=== PATIENT | male | born 1965 | race Caucasian/White ===

== ENCOUNTER 2017-05-10 23:10 | Emergency (ER) | payer BC, MEDICAID, OTHER ==
[2017-05-10 23:53] LABS: CHLORIDE,CL 107 mmol/L (98-110); SODIUM,NA 140 mmol/L (136-146)
--- NOTE | 2017-05-10 23:56 | EDM.PDOC ---
ED HPI GENERAL MEDICAL PROBLEM - General Chief Complaint: Neuro Symptoms/Deficits Stated Complaint: left sided weakness Time Seen by Provider: 05/10/17 23:20 - History of Present Illness INITIAL COMMENTS - FREE TEXT/NARRATIVE: He presented to the ED with onset of left sided weakness about one hour prior to presentation. NO prior history of stroke no vomiting mild headache. - Related Data Allergies Allergy/AdvReac Type Severity Reaction Status Date / Time Penicillins Allergy Other Verified 05/10/17 23:22 Home Meds: Home Meds ALPRAZolam [Alprazolam] 0.5 mg PO BID 05/10/17 [History] Carvedilol 6.25 mg PO BID 05/10/17 [History] Lisinopril 5 mg PO DAILY 05/10/17 [History] Past Medical History Cardiovascular History: Reports: Hypertension. Denies: Heart Failure, [place] Respiratory History: Reports: COPD Gastrointestinal History: Denies: Cirrhosis Genitourinary History: Denies: Chronic Renal Insuffiency Neurological History: Denies: Brain Injury, CVA, [place] Endocrine/Metabolic History: Denies: Diabetes, Type II ED ROS GENERAL - Review of Systems Review Of Systems: See Below Constitutional: Denies: Fever, Chills Respiratory: Denies: Shortness of Breath Cardiovascular: Denies: Chest Pain GI/Abdominal: Denies: Abdominal Pain, Black Stool, Bloody Stool, Hematemesis, Hematochezia : Denies: Dysuria, Hematuria ED EXAM, NEURO - Physical Exam Exam: See Below General Appearance: Alert, No Apparent Distress Head Exam: No: Facial Swelling Neck: Supple Cardiovascular: Regular Rate, Rhythm GI/Abdominal: Soft, Non-Tender Neurological: Alert, Normal Mood/Affect, CN II-XII Intact (clumsy movements LUE and LLE. unable to bend at left knee; unable to perform finger to nose; unable to do rapid alternating movement left hand/ fingers; weak left hand kindergarten assistant;) Comments: normal speech neck supple unable to perform finger to nose; unable to do rapid alternating movement left hand; weak left hand kindergarten assistant left LLE weak with inability to bend at left knee normal mentation CT head : no bleeding Course - Vital Signs Last Recorded V/S: Last Vital Signs Temp 97.6 F 05/10/17 23:13 Pulse 66 05/10/17 23:13 Resp 17 05/10/17 23:13 BP 113/59 L 05/10/17 23:13 Pulse Ox 98 05/10/17 23:13 - Orders/Labs/Meds Orders: Active Orders 24 hr Category Date Time Status EKG 12 Lead [EKG Documentation Completion] [RC] STAT Care 05/10/17 23:23 Active Head wo Cont [CT] Stat Exams 05/10/17 23:23 Taken COMPREHENSIVE METABOLIC PN,CMP [CHEM] Stat Lab 05/10/17 23:23 Received Labs: Laboratory Tests 05/10/17 05/10/17 Range/Units 23:23 23:23 WBC 11.33 H (4.0-11.0) K/uL RBC 4.43 L (4.50-5.90) M/uL Hgb 14.0 (13.0-17.0) g/dL Hct 40.3 (38.0-50.0) % MCV 91.0 (80.0-98.0) fL MCH 31.6 (27.0-32.0) pg MCHC 34.7 (31.0-37.0) g/dL RDW Std Deviation 42.7 (28.0-62.0) fl RDW Coeff of Dmo 13 (11.0-15.0) % Plt Count 209 (150-400) K/uL MPV 10.80 (7.40-12.00) fL Neut % (Auto) 52.4 (48.0-80.0) % Lymph % (Auto) 36.2 (16.0-40.0) % [place] % (Auto) 9.7 (0.0-15.0) % Eos % (Auto) 1.3 (0.0-7.0) % Baso % (Auto) 0.4 (0.0-1.5) % Neut # (Auto) 5.9 H (1.4-5.7) K/uL Lymph # (Auto) 4.1 H (0.6-2.4) K/uL [place] # (Auto) 1.1 H (0.0-0.8) K/uL Eos # (Auto) 0.2 (0.0-0.7) K/uL Baso # (Auto) 0.1 (0.0-0.1) K/uL Nucleated RBC % 0.0 /100WBC Nucleated RBCs # 0 K/uL INR 0.97 (0.86-1.11) - Re-Assessments/Exams Free Text/Narrative Re-Assessment/Exam: 05/11/17 00:07 I counseled patient regarding TPA and he agrees to proceed I discussed with Dr Alie Mart who agrees to accept in transfer I discussed with Dr Cruz, neurology who agrees with TPA and transfer Departure - Departure Time of Disposition: 00:08 Disposition: DC/Tfer to Acute Hospital 02 Condition: Fair Clinical Impression: Acute embolic stroke - Discharge Information Forms: ED Department Discharge - My Orders Last 24 Hours: My Active Orders 05/10/17 23:23 EKG 12 Lead [EKG Documentation Completion] [RC] STAT Head wo Cont [CT] Stat COMPREHENSIVE METABOLIC PN,CMP [CHEM] Stat - Assessment/Plan Last 24 Hours: My Active Orders 05/10/17 23:23 EKG 12 Lead [EKG Documentation Completion] [RC] STAT Head wo Cont [CT] Stat COMPREHENSIVE METABOLIC PN,CMP [CHEM] Stat
[2017-05-11] MEDS ORDERED: Alteplase 81 MG in Premix Bag 1 BAG IV STA (00:15)
[2017-05-11 03:45] VITALS: BP 100/57
--- NOTE | 2017-05-11 13:39 | CT ---
EXAM DATE: 05/10/17 PATIENT'S AGE: 52 Patient: SHANEL [facility] Facility: [place], [place] Site . Site : 1965 Study: CT Head STROKE PROTOCOL [id number]/[id number]-05/10/2017 11:34:13 PM Ordering Physician: Doctor Da Silva Final Report: INDICATION: Stroke symptomatology TECHNIQUE: CT head without contrast. COMPARISON: None FINDINGS: CSF spaces: Within normal limits for age. Brain parenchyma: The black-white differentiation is normal. No sign of mass, hemorrhage, or midline shift. Skull base and calvarium: The visualized paranasal sinuses and mastoid air cells demonstrate no acute or significant findings. The visualized orbits are grossly unremarkable. No skull fractures. IMPRESSION: Unremarkable noncontrast head CT. Dictated by Jonel Nichols MD @ 05/10/2017 11:45:16 PM Dictated by: Jonel Nichols MD @ 05/10/2017 23:45:23 ----- ADDENDUM ----- Confirmation of report received on 05/10/2017 at 11:[address] Kolb.: Dictated by Jonel Nichols MD @ May 10 2017 11:50PM (Electronic Signature) Report Signed by Proxy. MT
== END 2017-05-11 00:38 ==
LOC: MW.ED 23:10
DX: I63.9 Cerebral infarction, unspecified (principal); J44.9 Chronic obstructive pulmonary disease, unspecified; I12.9 Hypertensive chronic kidney disease with stage 1 through stage 4 chronic kidney disease, or unspecified chronic kidney disease; E11.22 Type 2 diabetes mellitus with diabetic chronic kidney disease; N18.9 Chronic kidney disease, unspecified; Z87.820 Personal history of traumatic brain injury; Z79.899 Other long term (current) drug therapy; Z88.0 Allergy status to penicillin
CPT/HCPCS: 36415; 70450; 80053; 85025; 85610; 93005; 96374; 99285; J2997

== ENCOUNTER 2017-10-22 08:29 | Emergency (ER) | payer OTHER ==
--- NOTE | 2017-10-22 08:35 | EDM.PDOC ---
ED HPI GENERAL MEDICAL PROBLEM - General Chief Complaint: Syncope Stated Complaint: UNK Time Seen by Provider: 10/22/17 08:31 Source of Information: Reports: Patient History Limitations: Reports: No Limitations - History of Present Illness INITIAL COMMENTS - FREE TEXT/NARRATIVE: History of present illness: []Patient was at work standing talking to a coworker when he started feeling lightheaded like he is going to pass out. She has had this feeling before and recognized it. He started to go to his knees and grabbed a bar for stability and then passed out. Workers told him that he was out for about 15 seconds he states that he could hear voices the whole time but he was focusing on taking control of his breathing. He stated he felt a sharp "punch" to his chest however his coworkers did not touch him. He denies sweating, shortness of breath , numbness, tingling nausea or vomiting. He asked his coworkers if his speech was slurred and they stated it was not. She had a stroke in April with residual very mild left-sided weakness and numbness. He states this has not changed. On arrival his glucose was 88 has blood pressure was 93/53. Review of systems: As per history of present illness and below otherwise all systems reviewed and negative. Past medical history: As per history of present illness and as reviewed below otherwise noncontributory. Surgical history: As per history of present illness and as reviewed below otherwise noncontributory. Social history: No reported history of drug or alcohol abuse. Family history: As per history of present illness and as reviewed below otherwise noncontributory. Physical exam: General: Well developed, well nourished in NAD HEENT: Atraumatic, normocephalic, pupils reactive, negative for conjunctival pallor or scleral icterus, mucous membranes moist, throat clear, neck supple, nontender, trachea midline. Lungs: Clear to auscultation, breath sounds equal bilaterally, chest nontender. Heart: S1S2, regular, negative for clicks, rubs, or JVD. Abdomen: Soft, nondistended, nontender. Negative for masses or hepatosplenomegaly. Negative for costovertebral tenderness. Pelvis: Stable nontender. Genitourinary: Deferred. Rectal: Deferred. Extremities: Atraumatic, negative for cords or calf pain. Neurovascular unremarkable. Neuro: Awake, alert, oriented. Cranial nerves II through XII unremarkable. Cerebellum unremarkable. Motor and sensory unremarkable throughout. Exam nonfocal. Diagnostics: []Labs CT chest x-ray and EKG all normal Therapeutics: []IV hydrated with improvement Impression: []Vasovagal syncope Plan: []Increase fluids follow-up with primary care return if symptoms worsen or change Definitive disposition and diagnosis as appropriate pending reevaluation and review of above. - Related Data Allergies Allergy/AdvReac Type Severity Reaction Status Date / Time Penicillins Allergy Other Verified 10/22/17 08:31 Home Meds: Home Meds ALPRAZolam [Alprazolam] 1 mg PO BEDTIME 05/10/17 [History] Aspirin 81 mg PO DAILY 05/10/17 [History] Carvedilol 0 mg PO DAILY 05/10/17 [History] Furosemide [Lasix] 0 mg PO DAILY 05/10/17 [History] Lisinopril 5 mg PO DAILY 05/10/17 [History] Rosuvastatin [Crestor] 0 mg PO BEDTIME 10/22/17 [History] Past Medical History HEENT History: Reports: None Cardiovascular History: Reports: Hypertension. Denies: Heart Failure, [place] Other Cardiovascular History: enlarge heart, DVT Respiratory History: Reports: COPD Gastrointestinal History: Denies: Cirrhosis Genitourinary History: Denies: Chronic Renal Insuffiency Musculoskeletal History: Reports: None Neurological History: Denies: Brain Injury, CVA, [place] Psychiatric History: Reports: None Endocrine/Metabolic History: Denies: Diabetes, Type II Hematologic History: Reports: None Immunologic History: Reports: None Oncologic (Cancer) History: Reports: None Dermatologic History: Reports: None - Infectious Disease History Infectious Disease History: Reports: None - Past Surgical History Head Surgeries/Procedures: Reports: None HEENT Surgical History: Reports: None Male Surgical History: Reports: None Social & Family History - Tobacco Use Smoking Status *Q: Current Every Day Smoker Years of Tobacco use: 30 Packs/Tins Daily: 0.5 - Caffeine Use Caffeine Use: Reports: Coffee, Soda - Recreational Drug Use Recreational Drug Use: No ED ROS GENERAL - Review of Systems Review Of Systems: See Below (See history of present illness) - Physical Exam Exam: See Below (See history of present illness) Course - Vital Signs Last Recorded V/S: Last Vital Signs Temp 97.6 F 10/22/17 08:29 Pulse 72 10/22/17 09:55 Resp 18 10/22/17 09:55 BP 102/58 L 10/22/17 09:55 Pulse Ox 96 10/22/17 09:55 - Orders/Labs/Meds Orders: Active Orders 24 hr Category Date Time Status EKG Documentation Completion [RC] STAT Care 10/22/17 08:59 Active Sodium Chloride 0.9% [Saline Flush] Med 10/22/17 08:59 Active 10 ml FLUSH ASDIRECTED PRN Sodium Chloride 0.9% [Saline Flush] Med 10/22/17 08:59 Active 2.5 ml FLUSH ASDIRECTED PRN Saline Lock Insert [OM.PC] Stat Oth 10/22/17 08:59 Ordered Medication Orders Sodium Chloride (Saline Flush) 10 ml FLUSH ASDIRECTED PRN PRN Reason: Keep Vein Open Last Admin: 10/22/17 09:09 Dose: 10 ml Sodium Chloride (Saline Flush) 2.5 ml FLUSH ASDIRECTED PRN PRN Reason: Keep Vein Open Last Admin: 10/22/17 09:10 Dose: 2.5 ml Labs: Laboratory Tests 10/22/17 10/22/17 10/22/17 Range/Units 08:35 08:50 08:50 WBC 9.50 (4.0-11.0) K/uL RBC 4.13 L (4.50-5.90) M/uL Hgb 13.1 (13.0-17.0) g/dL Hct 37.6 L (38.0-50.0) % MCV 91.0 (80.0-98.0) fL MCH 31.7 (27.0-32.0) pg MCHC 34.8 (31.0-37.0) g/dL RDW Std Deviation 41.9 (28.0-62.0) fl RDW Coeff of Dom 13 (11.0-15.0) % Plt Count 205 (150-400) K/uL MPV 10.50 (7.40-12.00) fL Neut % (Auto) 64.7 (48.0-80.0) % Lymph % (Auto) 23.3 (16.0-40.0) % [place] % (Auto) 10.5 (0.0-15.0) % Eos % (Auto) 1.2 (0.0-7.0) % Baso % (Auto) 0.3 (0.0-1.5) % Neut # (Auto) 6.2 H (1.4-5.7) K/uL Lymph # (Auto) 2.2 (0.6-2.4) K/uL [place] # (Auto) 1.0 H (0.0-0.8) K/uL Eos # (Auto) 0.1 (0.0-0.7) K/uL Baso # (Auto) 0.0 (0.0-0.1) K/uL Nucleated RBC % 0.0 /100WBC Nucleated RBCs # 0 K/uL Sodium 137 (136-146) mmol/L Potassium 4.3 (3.5-5.1) mmol/L Chloride 102 (98-110) mmol/L Carbon Dioxide 27 (21-31) mmol/L BUN 18 (6.0-23.0) mg/dL Creatinine 1.0 (0.6-1.5) mg/dL Est Cr Clr Drug Dosing 76.21 mL/min Estimated GFR (MDRD) > 60.0 ml/min Glucose 106 (60-110) mg/dL POC Glucose (60-110) mg/dL Calcium 9.3 (8.8-10.8) mg/dL Total Bilirubin 0.4 (0.1-1.5) mg/dL AST 16 (5-40) IU/L ALT 16 (8-54) IU/L Alkaline Phosphatase 114 (40-150) Troponin I < 0.10 (0.0-0.29) NG/ML Total Protein 7.2 (6.0-8.0) g/dL Albumin 3.8 (3.5-5.0) g/dL Globulin 3.4 (2.0-3.5) g/dL Albumin/Globulin Ratio 1.1 L (1.3-2.8) Urine Color YELLOW Urine Appearance CLEAR Urine pH 6.0 (5.0-8.0) Ur Specific [place] 1.010 (1.001-1.035) Urine Protein NEGATIVE (NEGATIVE) mg/dL Urine Glucose (UA) NEGATIVE (NEGATIVE) mg/dL Urine Ketones NEGATIVE (NEGATIVE) mg/dL Urine Occult Blood NEGATIVE (NEGATIVE) Urine Nitrite NEGATIVE (NEGATIVE) Urine Bilirubin NEGATIVE (NEGATIVE) Urine Urobilinogen 0.2 (<2.0) EU/dL Ur Leukocyte Esterase NEGATIVE (NEGATIVE) Urine RBC 0-1 (0-2/HPF) Urine WBC 0-1 (0-5/HPF) Ur Epithelial Cells RARE (NONE-FEW) Urine Bacteria RARE (NEGATIVE) 10/22/17 Range/Units 08:52 WBC (4.0-11.0) K/uL RBC (4.50-5.90) M/uL Hgb (13.0-17.0) g/dL Hct (38.0-50.0) % MCV (80.0-98.0) fL MCH (27.0-32.0) pg MCHC (31.0-37.0) g/dL RDW Std Deviation (28.0-62.0) fl RDW Coeff of Dom (11.0-15.0) % Plt Count (150-400) K/uL MPV (7.40-12.00) fL Neut % (Auto) (48.0-80.0) % Lymph % (Auto) (16.0-40.0) % [place] % (Auto) (0.0-15.0) % Eos % (Auto) (0.0-7.0) % Baso % (Auto) (0.0-1.5) % Neut # (Auto) (1.4-5.7) K/uL Lymph # (Auto) (0.6-2.4) K/uL [place] # (Auto) (0.0-0.8) K/uL Eos # (Auto) (0.0-0.7) K/uL Baso # (Auto) (0.0-0.1) K/uL Nucleated RBC % /100WBC Nucleated RBCs # K/uL Sodium (136-146) mmol/L Potassium (3.5-5.1) mmol/L Chloride (98-110) mmol/L Carbon Dioxide (21-31) mmol/L BUN (6.0-23.0) mg/dL Creatinine (0.6-1.5) mg/dL Est Cr Clr Drug Dosing mL/min Estimated GFR (MDRD) ml/min Glucose (60-110) mg/dL POC Glucose 88 (60-110) mg/dL Calcium (8.8-10.8) mg/dL Total Bilirubin (0.1-1.5) mg/dL AST (5-40) IU/L ALT (8-54) IU/L Alkaline Phosphatase (40-150) Troponin I (0.0-0.29) NG/ML Total Protein (6.0-8.0) g/dL Albumin (3.5-5.0) g/dL Globulin (2.0-3.5) g/dL Albumin/Globulin Ratio (1.3-2.8) Urine Color Urine Appearance Urine pH (5.0-8.0) Ur Specific [place] (1.001-1.035) Urine Protein (NEGATIVE) mg/dL Urine Glucose (UA) (NEGATIVE) mg/dL Urine Ketones (NEGATIVE) mg/dL Urine Occult Blood (NEGATIVE) Urine Nitrite (NEGATIVE) Urine Bilirubin (NEGATIVE) Urine Urobilinogen (<2.0) EU/dL Ur Leukocyte Esterase (NEGATIVE) Urine RBC (0-2/HPF) Urine WBC (0-5/HPF) Ur Epithelial Cells (NONE-FEW) Urine Bacteria (NEGATIVE) Meds: Medications Generic Name Dose Route Start Last Admin Trade Name Freq PRN Reason Stop Dose Admin Sodium Chloride 10 ml 10/22/17 08:59 10/22/17 09:09 Saline Flush FLUSH 10 ml ASDIRECTED PRN Administration Keep Vein Open Sodium Chloride 2.5 ml 10/22/17 08:59 10/22/17 09:10 Saline Flush FLUSH 2.5 ml ASDIRECTED PRN Administration Keep Vein Open Discontinued Medications Generic Name Dose Route Start Last Admin Trade Name Freq PRN Reason Stop Dose Admin Sodium Chloride 1,000 mls @ 999 mls/hr 10/22/17 08:59 10/22/17 09:09 Normal Saline IV 10/22/17 09:59 999 mls/hr .Bolus ONE Administration Departure - Departure Time of Disposition: 10:13 Disposition: Home, Self-Care 01 Condition: Good Clinical Impression: Vasovagal syncope - Discharge Information Forms: ED Department Discharge Additional Instructions: The following information is given to patients seen in the emergency department who are being discharged to home. This information is to outline your options for follow-up care. We provide all patients seen in our emergency department with a follow-up referral. The need for follow-up, as well as the timing and circumstances, are variable depending upon the specifics of your emergency department visit. If you don't have a primary care physician on staff, we will provide you with a referral. We always advise you to contact your personal physician following an emergency department visit to inform them of the circumstance of the visit and for follow-up with them and/or the need for any referrals to a consulting specialist. The emergency department will also refer you to a specialist when appropriate. This referral assures that you have the opportunity for follow-up care with a specialist. All of these measure are taken in an effort to provide you with optimal care, which includes your follow-up. Under all circumstances we always encourage you to contact your private physician who remains a resource for coordinating your care. When calling for follow-up care, please make the office aware that this follow-up is from your recent emergency room visit. If for any reason you are refused follow-up, please contact the [facility] at and asked to speak to the emergency department charge nurse. Increase fluids follow-up with primary care return if symptoms worsen or change [facility] [address] [place] [address] - My Orders Last 24 Hours: My Active Orders 10/22/17 08:59 EKG Documentation Completion [RC] STAT Sodium Chloride 0.9% [Saline Flush] 10 ml FLUSH ASDIRECTED PRN Sodium Chloride 0.9% [Saline Flush] 2.5 ml FLUSH ASDIRECTED PRN Saline Lock Insert [OM.PC] Stat - Assessment/Plan Last 24 Hours: My Active Orders 10/22/17 08:59 EKG Documentation Completion [RC] STAT Sodium Chloride 0.9% [Saline Flush] 10 ml FLUSH ASDIRECTED PRN Sodium Chloride 0.9% [Saline Flush] 2.5 ml FLUSH ASDIRECTED PRN Saline Lock Insert [OM.PC] Stat
[2017-10-22] MEDS ORDERED: Sodium Chloride 0.9% 1,000 ML IV ONE (08:59)
[2017-10-22] MEDS ORDERED: Sodium Chloride 0.9% 2.5 ML Syringe FLUSH PRN (08:59)
[2017-10-22] MEDS ORDERED: Sodium Chloride 0.9% 10 ML Syringe FLUSH PRN (08:59)
[2017-10-22 09:22] LABS: CHLORIDE,CL 102 mmol/L (98-110); SODIUM,NA 137 mmol/L (136-146)
--- NOTE | 2017-10-22 09:40 | CT ---
EXAMINATION: Non contrast CT head. Coronal and sagittal reformats. Comparison: 05/10/2017. HISTORY: Pain FINDINGS: No evidence of intra or extra axial hemorrhage, mass, midline shift, hydrocephalus or edema. No hypoattenuation changes in the major vascular territories to suggest acute infarct. No abnormal intracranial calcifications are detected. No evidence of substantial vascular calcificat ions. Orbits and globes are symmetric. Paranasal sinuses and mastoid air cells are well aerated without substantial findings. Pituitary fossa appears unremarkable. Calvarium is intact. No evidence of skull fracture. IMPRESSION: No acute intracranial findings.
--- NOTE | 2017-10-22 09:41 | CR ---
EXAMINATION: Portable chest radiograph. HISTORY: Shortness of breath. FINDINGS: The trachea is midline. The cardiomediastinal silhouette is within normal limits. No pulmonary infilt rates, effusions or pneumothorax. Accessory azygos fissure. Osseous structures appear unremarkable. IMPRESSION: No acute cardiopulmonary process.
[2017-10-22 10:19] VITALS: BP 112/47
== END 2017-10-22 10:26 | disposition home or self-care (01) ==
LOC: MW.ED 08:29
DX: R55 Syncope and collapse (principal); I10 Essential (primary) hypertension; F17.210 Nicotine dependence, cigarettes, uncomplicated; Z88.0 Allergy status to penicillin; Z79.82 Long term (current) use of aspirin; Z79.899 Other long term (current) drug therapy
CPT/HCPCS: 36415; 70450; 71010; 80053; 81001; 82962; 84484; 85025; 93005; 96360; 99285; J7040; 99284

== ENCOUNTER 2018-05-13 08:33 | Observation (INO) | payer BC, OTHER ==
[2018-05-13] MEDS ORDERED: Sodium Chloride 0.9% 2.5 ML Syringe FLUSH PRN (09:03)
[2018-05-13] MEDS ORDERED: Sodium Chloride 0.9% 1,000 ML IV ONE (09:03)
[2018-05-13] MEDS ORDERED: Sodium Chloride 0.9% 10 ML Syringe FLUSH PRN (09:03)
[2018-05-13] MEDS ORDERED: Ketorolac 30 MG/ML SDV IVPUSH ONE (09:03)
--- NOTE | 2018-05-13 09:07 | EDM.PDOC ---
ED HPI GENERAL MEDICAL PROBLEM - General Chief Complaint: General Stated Complaint: COLD, DIZZY Time Seen by Provider: 05/13/18 08:47 - History of Present Illness INITIAL COMMENTS - FREE TEXT/NARRATIVE: HISTORY AND PHYSICAL: History of present illness: The patient is a 53-year-old male with a history of hypertension hypercholesterolemia and a CVA last April who follows at [facility] and presents with body aches malaise and chills. Patient says he had diarrhea at the beginning of the illness but currently has no diarrhea making normal urine output. He has no abdominal pain no chest pain or shortness of breath but was coughing last evening which was nonproductive. He says he hasn't had a fever at home but he has the chills all the time and he feels weak all over and lightheaded. He has not passed out or blacked out and he is very vague with his complaints but does says he doesn't feel quite right. He has no new focal weakness and it is a generalized weakness he's experiencing. As a result of the stroke he has does not use a cane or a walker and has some forgetfulness and some weakness but nothing overwhelming. He has no neck or back pain. Review of systems: As per history of present illness and below otherwise all systems reviewed and negative. Past medical history: As per history of present illness and as reviewed below otherwise noncontributory. Surgical history: As per history of present illness and as reviewed below otherwise noncontributory. Social history: No reported history of drug or alcohol abuse. Family history: As per history of present illness and as reviewed below otherwise noncontributory. Physical exam: General: Well-developed well-nourished overweight man who is nontoxic and vital signs were noted by me and patient has a blanket on and is having some mild shaking chills on my evaluation HEENT: Atraumatic, normocephalic, pupils reactive, negative for conjunctival pallor or scleral icterus, mucous membranes moist, throat clear, neck supple, nontender, trachea midline. Lungs: Clear to auscultation occasional coarse breath sounds but no wheezing rales or stridor, breath sounds equal bilaterally, chest nontender. Heart: S1S2, regular rate and rhythm no murmurs Abdomen: Soft, nondistended, nontender. NABS Negative for costovertebral tenderness. Pelvis: Deferred Genitourinary: Deferred. Rectal: Deferred. Extremities: Atraumatic, negative for cords or calf pain. Neurovascular unremarkable. Neuro: Awake, alert, oriented. Cranial nerves II through XII unremarkable. Cerebellum unremarkable. Motor and sensory unremarkable throughout. Exam nonfocal. Diagnostics: EKG CBC CMP UA chest x-ray lactic acid blood cultures Therapeutics: IV fluids Toradol Levaquin Tylenol Case was discussed with Dr. Acevedo at 10:30 AM. He is aware of all testing results and is in the ED seeing the patient. He would like an observation admission and Levaquin 750 mg. I will give a dose of Tylenol as the patient is now mounting a temperature of 100.6 Impression: Febrile illness etiology unclear stable Definitive disposition and diagnosis as appropriate pending reevaluation and review of above. Generalized Pain Score (Numeric/FACES): 5 - Related Data Allergies Allergy/AdvReac Type Severity Reaction Status Date / Time Penicillins Allergy Other Verified 05/13/18 09:01 Home Meds: Home Meds ALPRAZolam [Alprazolam] 1 mg PO BEDTIME 05/10/17 [History] Aspirin 81 mg PO DAILY 05/10/17 [History] Carvedilol 0 mg PO DAILY 05/10/17 [History] Furosemide [Lasix] 0 mg PO DAILY 05/10/17 [History] Lisinopril 5 mg PO DAILY 05/10/17 [History] Rosuvastatin [Crestor] 0 mg PO BEDTIME 10/22/17 [History] Past Medical History - Past Health History Medical/Surgical History: Denies Medical/Surgical History HEENT History: Reports: None Cardiovascular History: Reports: Hypertension. Denies: Heart Failure, [place] Other Cardiovascular History: enlarge heart, DVT Respiratory History: Reports: COPD Gastrointestinal History: Denies: Cirrhosis Genitourinary History: Denies: Chronic Renal Insuffiency Musculoskeletal History: Reports: None Neurological History: Denies: Brain Injury, CVA, [place] Psychiatric History: Reports: None Endocrine/Metabolic History: Denies: Diabetes, Type II Hematologic History: Reports: None Immunologic History: Reports: None Oncologic (Cancer) History: Reports: None Dermatologic History: Reports: None - Infectious Disease History Infectious Disease History: Reports: None - Past Surgical History Head Surgeries/Procedures: Reports: None HEENT Surgical History: Reports: None Male Surgical History: Reports: None Social & Family History - Family History Family Medical History: Noncontributory - Caffeine Use Caffeine Use: Reports: Coffee, Soda Caffeine Use Comment: 2 cups daily ED ROS GENERAL - Review of Systems Review Of Systems: ROS reveals no pertinent complaints other than HPI. ED EXAM, GENERAL - Physical Exam Exam: See Below (see dictation) Course - Vital Signs Last Recorded V/S: Last Vital Signs Temp 38.1 C 05/13/18 10:28 Pulse 87 05/13/18 10:28 Resp 18 05/13/18 10:28 BP 137/57 L 05/13/18 10:28 Pulse Ox 98 05/13/18 10:28 - Orders/Labs/Meds Orders: Active Orders 24 hr Category Date Time Status Patient Status [ADT] Stat ADT 05/13/18 10:32 Ordered EKG Documentation Completion [RC] STAT Care 05/13/18 09:02 Active Oxygen Therapy, ED [RC] ASDIRECTED Care 05/13/18 09:02 Active Pulse Oximetry [RC] ASDIRECTED Care 05/13/18 09:02 Active CULTURE BLOOD [BC] Stat Lab 05/13/18 09:33 Received CULTURE BLOOD [BC] Stat Lab 05/13/18 09:48 Ordered UA W/MICROSCOPIC [URIN] Stat Lab 05/13/18 10:10 Ordered Acetaminophen [Tylenol Extra Strength] Med 05/13/18 10:31 Once 1,000 mg PO ONETIME ONE Levofloxacin/Dextrose 5%-Water [Levaquin in D5W 750 MG/ Med 05/13/18 10:30 Ordered 150 ML] 750 mg Premix Bag 1 bag IV ONETIME Sodium Chloride 0.9% [Saline Flush] Med 05/13/18 09:03 Active 10 ml FLUSH ASDIRECTED PRN Sodium Chloride 0.9% [Saline Flush] Med 05/13/18 09:03 Active 2.5 ml FLUSH ASDIRECTED PRN Blood Culture x2 Reflex Set [OM.PC] Stat Oth 05/13/18 09:48 Ordered Saline Lock Insert [OM.PC] Stat Oth 05/13/18 09:02 Ordered Medication Orders Acetaminophen (Tylenol Extra Strength) 1,000 mg PO ONETIME ONE Stop: 05/13/18 10:32 Levofloxacin/Dextrose 750 mg/ (Premix) 150 mls @ 100 mls/hr IV ONETIME ONE Stop: 05/13/18 11:59 Sodium Chloride (Saline Flush) 10 ml FLUSH ASDIRECTED PRN PRN Reason: Keep Vein Open Sodium Chloride (Saline Flush) 2.5 ml FLUSH ASDIRECTED PRN PRN Reason: Keep Vein Open Labs: Laboratory Tests 05/13/18 05/13/18 05/13/18 Range/Units 09:33 09:33 09:33 WBC 16.11 H (4.0-11.0) K/uL RBC 4.15 L (4.50-5.90) M/uL Hgb 12.8 L (13.0-17.0) g/dL Hct 37.9 L (38.0-50.0) % MCV 91.3 (80.0-98.0) fL MCH 30.8 (27.0-32.0) pg MCHC 33.8 (31.0-37.0) g/dL RDW Std Deviation 44.1 (28.0-62.0) fl RDW Coeff of Dom 13 (11.0-15.0) % Plt Count 176 (150-400) K/uL MPV 10.40 (7.40-12.00) fL Neut % (Auto) 84.6 H (48.0-80.0) % Lymph % (Auto) 7.8 L (16.0-40.0) % [place] % (Auto) 7.1 (0.0-15.0) % Eos % (Auto) 0.4 (0.0-7.0) % Baso % (Auto) 0.1 (0.0-1.5) % Neut # (Auto) 13.6 H (1.4-5.7) K/uL Lymph # (Auto) 1.3 (0.6-2.4) K/uL [place] # (Auto) 1.1 H (0.0-0.8) K/uL Eos # (Auto) 0.1 (0.0-0.7) K/uL Baso # (Auto) 0.0 (0.0-0.1) K/uL Nucleated RBC % 0.0 /100WBC Nucleated RBCs # 0 K/uL Lactate 3.2 H (0.20-2.00) mmol/L Sodium 143 (136-148) mmol/L Potassium 4.4 (3.5-5.1) mmol/L Chloride 105 (98-107) mmol/L Carbon Dioxide 30.0 (21.0-32.0) mmol/L BUN 7 (7.0-18.0) mg/dL Creatinine 1.2 (0.8-1.3) mg/dL Est Cr Clr Drug Dosing TNP Estimated GFR (MDRD) > 60.0 ml/min Glucose 96 (74-106) mg/dL Calcium 9.0 (8.5-10.1) mg/dL Total Bilirubin 0.5 (0.2-1.0) mg/dL AST 23 (15-37) IU/L ALT 36 (14-63) IU/L Alkaline Phosphatase 88 (46-116) U/L Total Protein 6.9 (6.4-8.2) g/dL Albumin 3.8 (3.4-5.0) g/dL Globulin 3.1 (2.0-3.5) g/dL Albumin/Globulin Ratio 1.2 L (1.3-2.8) Urine Color Urine Appearance Urine pH (5.0-8.0) Ur Specific [place] (1.001-1.035) Urine Protein (NEGATIVE) mg/dL Urine Glucose (UA) (NEGATIVE) mg/dL Urine Ketones (NEGATIVE) mg/dL Urine Occult Blood (NEGATIVE) Urine Nitrite (NEGATIVE) Urine Bilirubin (NEGATIVE) Urine Urobilinogen (<2.0) EU/dL Ur Leukocyte Esterase (NEGATIVE) Urine RBC (0-2/HPF) Urine WBC (0-5/HPF) Ur Epithelial Cells (NONE-FEW) Urine Bacteria (NEGATIVE) 05/13/18 Range/Units 10:10 WBC (4.0-11.0) K/uL RBC (4.50-5.90) M/uL Hgb (13.0-17.0) g/dL Hct (38.0-50.0) % MCV (80.0-98.0) fL MCH (27.0-32.0) pg MCHC (31.0-37.0) g/dL RDW Std Deviation (28.0-62.0) fl RDW Coeff of Dom (11.0-15.0) % Plt Count (150-400) K/uL MPV (7.40-12.00) fL Neut % (Auto) (48.0-80.0) % Lymph % (Auto) (16.0-40.0) % [place] % (Auto) (0.0-15.0) % Eos % (Auto) (0.0-7.0) % Baso % (Auto) (0.0-1.5) % Neut # (Auto) (1.4-5.7) K/uL Lymph # (Auto) (0.6-2.4) K/uL [place] # (Auto) (0.0-0.8) K/uL Eos # (Auto) (0.0-0.7) K/uL Baso # (Auto) (0.0-0.1) K/uL Nucleated RBC % /100WBC Nucleated RBCs # K/uL Lactate (0.20-2.00) mmol/L Sodium (136-148) mmol/L Potassium (3.5-5.1) mmol/L Chloride (98-107) mmol/L Carbon Dioxide (21.0-32.0) mmol/L BUN (7.0-18.0) mg/dL Creatinine (0.8-1.3) mg/dL Est Cr Clr Drug Dosing Estimated GFR (MDRD) ml/min Glucose (74-106) mg/dL Calcium (8.5-10.1) mg/dL Total Bilirubin (0.2-1.0) mg/dL AST (15-37) IU/L ALT (14-63) IU/L Alkaline Phosphatase (46-116) U/L Total Protein (6.4-8.2) g/dL Albumin (3.4-5.0) g/dL Globulin (2.0-3.5) g/dL Albumin/Globulin Ratio (1.3-2.8) Urine Color YELLOW Urine Appearance CLEAR Urine pH 6.0 (5.0-8.0) Ur Specific [place] 1.020 (1.001-1.035) Urine Protein NEGATIVE (NEGATIVE) mg/dL Urine Glucose (UA) NEGATIVE (NEGATIVE) mg/dL Urine Ketones NEGATIVE (NEGATIVE) mg/dL Urine Occult Blood NEGATIVE (NEGATIVE) Urine Nitrite NEGATIVE (NEGATIVE) Urine Bilirubin NEGATIVE (NEGATIVE) Urine Urobilinogen 0.2 (<2.0) EU/dL Ur Leukocyte Esterase NEGATIVE (NEGATIVE) Urine RBC 0-1 (0-2/HPF) Urine WBC 0-1 (0-5/HPF) Ur Epithelial Cells RARE (NONE-FEW) Urine Bacteria RARE (NEGATIVE) Meds: Medications Generic Name Dose Route Start Last Admin Trade Name Kenneth PRN Reason Stop Dose Admin Acetaminophen 1,000 mg 05/13/18 10:31 Tylenol Extra Strength PO 05/13/18 10:32 ONETIME ONE Levofloxacin/Dextrose 750 mg/ 150 mls @ 100 mls/hr 05/13/18 10:30 Premix IV 05/13/18 11:59 ONETIME ONE Sodium Chloride 10 ml 05/13/18 09:03 Saline Flush FLUSH ASDIRECTED PRN Keep Vein Open Sodium Chloride 2.5 ml 05/13/18 09:03 Saline Flush FLUSH ASDIRECTED PRN Keep Vein Open Discontinued Medications Generic Name Dose Route Start Last Admin Trade Name Kenneth PRN Reason Stop Dose Admin Sodium Chloride 1,000 mls @ 999 mls/hr 05/13/18 09:03 05/13/18 09:36 Normal Saline IV 05/13/18 10:03 999 mls/hr STAT ONE Administration Ketorolac Tromethamine 30 mg 05/13/18 09:03 05/13/18 09:36 Toradol IVPUSH 05/13/18 09:04 30 mg ONETIME ONE Administration Departure - Departure Time of Disposition: 10:35 Disposition: Refer to Observation Condition: Good Clinical Impression: Febrile illness, acute - Discharge Information Referrals: PCP,None [Primary Care Provider] - Forms: ED Department Discharge - My Orders Last 24 Hours: My Active Orders 05/13/18 09:02 EKG Documentation Completion [RC] STAT Oxygen Therapy, ED [RC] ASDIRECTED Pulse Oximetry [RC] ASDIRECTED Saline Lock Insert [OM.PC] Stat 05/13/18 09:03 Sodium Chloride 0.9% [Saline Flush] 10 ml FLUSH ASDIRECTED PRN Sodium Chloride 0.9% [Saline Flush] 2.5 ml FLUSH ASDIRECTED PRN 05/13/18 09:33 CULTURE BLOOD [BC] Stat 05/13/18 09:48 CULTURE BLOOD [BC] Stat Blood Culture x2 Reflex Set [OM.PC] Stat 05/13/18 10:10 UA W/MICROSCOPIC [URIN] Stat 05/13/18 10:30 Levofloxacin/Dextrose 5%-Water [Levaquin in D5W 750 MG/150 ML] 750 mg Premix Bag 1 bag IV ONETIME 05/13/18 10:31 Acetaminophen [Tylenol Extra Strength] 1,000 mg PO ONETIME ONE 05/13/18 10:32 Patient Status [ADT] Stat - Assessment/Plan Last 24 Hours: My Active Orders 05/13/18 09:02 EKG Documentation Completion [RC] STAT Oxygen Therapy, ED [RC] ASDIRECTED Pulse Oximetry [RC] ASDIRECTED Saline Lock Insert [OM.PC] Stat 05/13/18 09:03 Sodium Chloride 0.9% [Saline Flush] 10 ml FLUSH ASDIRECTED PRN Sodium Chloride 0.9% [Saline Flush] 2.5 ml FLUSH ASDIRECTED PRN 05/13/18 09:33 CULTURE BLOOD [BC] Stat 05/13/18 09:48 CULTURE BLOOD [BC] Stat Blood Culture x2 Reflex Set [OM.PC] Stat 05/13/18 10:10 UA W/MICROSCOPIC [URIN] Stat 05/13/18 10:30 Levofloxacin/Dextrose 5%-Water [Levaquin in D5W 750 MG/150 ML] 750 mg Premix Bag 1 bag IV ONETIME 05/13/18 10:31 Acetaminophen [Tylenol Extra Strength] 1,000 mg PO ONETIME ONE 05/13/18 10:32 Patient Status [ADT] Stat
--- NOTE | 2018-05-13 10:09 | CR ---
EXAMINATION: Two-view chest (PA and Lateral views). HISTORY: Shortness of breath. FINDINGS: The trachea is midline. The cardiomediastinal silhouette is within normal limits. No pulmonary infilt rates, effusions or pneumothorax. Accessory azygos fissure. Osseous structures appear unremarkable. IMPRESSION: No acute cardiopulmonary process.
[2018-05-13 10:14] LABS: CHLORIDE,CL 105 mmol/L (98-107); SODIUM,NA 143 mmol/L (136-148)
[2018-05-13] MEDS ORDERED: Levofloxacin/Dextrose 5%-Water 750 MG in Premix Bag 1 BAG IV ONE (10:30)
[2018-05-13] MEDS ORDERED: Acetaminophen 500 MG Tab PO ONE (10:31)
--- NOTE | 2018-05-13 10:50 | PCM.HP ---
H&P History of Present Illness - General Date of Service: 05/13/18 Admit Problem/Dx: Admission Diagnosis/Problem Admission Diagnosis/Problem Fever - History of Present Illness Initial Comments - Free Text/Narative: 53 yo male with pmh of CVA who presents with one day history of fevers, chills, and malaise. He denies any pain, cough, diarrhea, nasuea, toothache or rash. Generalized Pain Score (Numeric/FACES): 5 - Related Data Allergies/Adverse Reactions: Allergies Allergy/AdvReac Type Severity Reaction Status Date / Time Penicillins Allergy Other Verified 05/13/18 09:01 Home Medications: Home Meds ALPRAZolam [Alprazolam] 1 mg PO BID PRN 05/10/17 [History] Carvedilol 6.25 mg PO BID 05/10/17 [History] Furosemide [Lasix] 40 mg PO DAILY 05/10/17 [History] Lisinopril 5 mg PO QPM 05/10/17 [History] Rosuvastatin [Crestor] 40 mg PO DAILY 10/22/17 [History] Aspirin 975 tab PO DAILY 05/13/18 [History] Cyanocobalamin (Vitamin B12) [Vitamin B12] 1 tab PO DAILY 05/13/18 [History] Budesonide/Formoterol Fumarate [Symbicort 160-4.5 Mcg Inhaler] 2 puff INH BID [History] Sulfamethoxazole/Trimethoprim [Bactrim Ds Tablet] 1 each PO BID #10 tablet 05/16 [Rx] Past Medical History - Past Health History Medical/Surgical History: Denies Medical/Surgical History HEENT History: Reports: None Cardiovascular History: Reports: Hypertension. Denies: Heart Failure, [place] Other Cardiovascular History: enlarge heart, DVT Respiratory History: Reports: COPD Gastrointestinal History: Denies: Cirrhosis Genitourinary History: Denies: Chronic Renal Insuffiency Musculoskeletal History: Reports: None Neurological History: Denies: Brain Injury, CVA, [place] Psychiatric History: Reports: None Endocrine/Metabolic History: Denies: Diabetes, Type II Hematologic History: Reports: None Immunologic History: Reports: None Oncologic (Cancer) History: Reports: None Dermatologic History: Reports: None - Infectious Disease History Infectious Disease History: Reports: None - Past Surgical History Head Surgeries/Procedures: Reports: None HEENT Surgical History: Reports: None Male Surgical History: Reports: None Social & Family History - Family History Family Medical History: Noncontributory - Tobacco Use Smoking Status *Q: Never Smoker - Caffeine Use Caffeine Use: Reports: Coffee, Soda Caffeine Use Comment: 2 cups daily H&P Review of Systems - Review of Systems: Review Of Systems: ROS reveals no pertinent complaints other than HPI. Exam - Exam Exam: See Below - Vital Signs Vital Signs: Last Vital Signs Temp 38.1 C 05/13/18 10:28 Pulse 87 05/13/18 10:28 Resp 18 05/13/18 10:28 BP 137/57 L 05/13/18 10:28 Pulse Ox 98 05/13/18 10:28 - Exam General: Alert, Oriented HEENT: Conjunctiva Clear, Mucosa Moist & [place], Posterior Pharynx Clear Neck: Supple Lungs: Clear to Auscultation, Normal Respiratory Effort Cardiovascular: Regular Rate, Regular Rhythm GI/Abdominal Exam: Normal Bowel Sounds, Soft, Non-Tender, No Distention Extremities: Normal Inspection, Normal Range of Motion, Non-Tender, No Pedal Edema Skin: Warm, Dry, Intact. No: Rash, Wound, Incision Neurological: Cranial Nerves Intact, Reflexes Equal Bilateral - Patient Data Lab Results Last 24 hrs: Laboratory Results - last 24 hr 05/13/18 05/13/18 05/13/18 Range/Units 09:33 09:33 09:33 WBC 16.11 H (4.0-11.0) K/uL RBC 4.15 L (4.50-5.90) M/uL Hgb 12.8 L (13.0-17.0) g/dL Hct 37.9 L (38.0-50.0) % MCV 91.3 (80.0-98.0) fL MCH 30.8 (27.0-32.0) pg MCHC 33.8 (31.0-37.0) g/dL RDW Std Deviation 44.1 (28.0-62.0) fl RDW Coeff of Dom 13 (11.0-15.0) % Plt Count 176 (150-400) K/uL MPV 10.40 (7.40-12.00) fL Neut % (Auto) 84.6 H (48.0-80.0) % Lymph % (Auto) 7.8 L (16.0-40.0) % [place] % (Auto) 7.1 (0.0-15.0) % Eos % (Auto) 0.4 (0.0-7.0) % Baso % (Auto) 0.1 (0.0-1.5) % Neut # (Auto) 13.6 H (1.4-5.7) K/uL Lymph # (Auto) 1.3 (0.6-2.4) K/uL [place] # (Auto) 1.1 H (0.0-0.8) K/uL Eos # (Auto) 0.1 (0.0-0.7) K/uL Baso # (Auto) 0.0 (0.0-0.1) K/uL Nucleated RBC % 0.0 /100WBC Nucleated RBCs # 0 K/uL Lactate 3.2 H (0.20-2.00) mmol/L Sodium 143 (136-148) mmol/L Potassium 4.4 (3.5-5.1) mmol/L Chloride 105 (98-107) mmol/L Carbon Dioxide 30.0 (21.0-32.0) mmol/L BUN 7 (7.0-18.0) mg/dL Creatinine 1.2 (0.8-1.3) mg/dL Est Cr Clr Drug Dosing TNP Estimated GFR (MDRD) > 60.0 ml/min Glucose 96 (74-106) mg/dL Calcium 9.0 (8.5-10.1) mg/dL Total Bilirubin 0.5 (0.2-1.0) mg/dL AST 23 (15-37) IU/L ALT 36 (14-63) IU/L Alkaline Phosphatase 88 (46-116) U/L Total Protein 6.9 (6.4-8.2) g/dL Albumin 3.8 (3.4-5.0) g/dL Globulin 3.1 (2.0-3.5) g/dL Albumin/Globulin Ratio 1.2 L (1.3-2.8) Urine Color Urine Appearance Urine pH (5.0-8.0) Ur Specific [place] (1.001-1.035) Urine Protein (NEGATIVE) mg/dL Urine Glucose (UA) (NEGATIVE) mg/dL Urine Ketones (NEGATIVE) mg/dL Urine Occult Blood (NEGATIVE) Urine Nitrite (NEGATIVE) Urine Bilirubin (NEGATIVE) Urine Urobilinogen (<2.0) EU/dL Ur Leukocyte Esterase (NEGATIVE) Urine RBC (0-2/HPF) Urine WBC (0-5/HPF) Ur Epithelial Cells (NONE-FEW) Urine Bacteria (NEGATIVE) 05/13/18 Range/Units 10:10 WBC (4.0-11.0) K/uL RBC (4.50-5.90) M/uL Hgb (13.0-17.0) g/dL Hct (38.0-50.0) % MCV (80.0-98.0) fL MCH (27.0-32.0) pg MCHC (31.0-37.0) g/dL RDW Std Deviation (28.0-62.0) fl RDW Coeff of Dom (11.0-15.0) % Plt Count (150-400) K/uL MPV (7.40-12.00) fL Neut % (Auto) (48.0-80.0) % Lymph % (Auto) (16.0-40.0) % [place] % (Auto) (0.0-15.0) % Eos % (Auto) (0.0-7.0) % Baso % (Auto) (0.0-1.5) % Neut # (Auto) (1.4-5.7) K/uL Lymph # (Auto) (0.6-2.4) K/uL [place] # (Auto) (0.0-0.8) K/uL Eos # (Auto) (0.0-0.7) K/uL Baso # (Auto) (0.0-0.1) K/uL Nucleated RBC % /100WBC Nucleated RBCs # K/uL Lactate (0.20-2.00) mmol/L Sodium (136-148) mmol/L Potassium (3.5-5.1) mmol/L Chloride (98-107) mmol/L Carbon Dioxide (21.0-32.0) mmol/L BUN (7.0-18.0) mg/dL Creatinine (0.8-1.3) mg/dL Est Cr Clr Drug Dosing Estimated GFR (MDRD) ml/min Glucose (74-106) mg/dL Calcium (8.5-10.1) mg/dL Total Bilirubin (0.2-1.0) mg/dL AST (15-37) IU/L ALT (14-63) IU/L Alkaline Phosphatase (46-116) U/L Total Protein (6.4-8.2) g/dL Albumin (3.4-5.0) g/dL Globulin (2.0-3.5) g/dL Albumin/Globulin Ratio (1.3-2.8) Urine Color YELLOW Urine Appearance CLEAR Urine pH 6.0 (5.0-8.0) Ur Specific [place] 1.020 (1.001-1.035) Urine Protein NEGATIVE (NEGATIVE) mg/dL Urine Glucose (UA) NEGATIVE (NEGATIVE) mg/dL Urine Ketones NEGATIVE (NEGATIVE) mg/dL Urine Occult Blood NEGATIVE (NEGATIVE) Urine Nitrite NEGATIVE (NEGATIVE) Urine Bilirubin NEGATIVE (NEGATIVE) Urine Urobilinogen 0.2 (<2.0) EU/dL Ur Leukocyte Esterase NEGATIVE (NEGATIVE) Urine RBC 0-1 (0-2/HPF) Urine WBC 0-1 (0-5/HPF) Ur Epithelial Cells RARE (NONE-FEW) Urine Bacteria RARE (NEGATIVE) Result Diagrams: 05/16/18 05:30 05/16/18 05:30 Problem List Initiated/Reviewed/Updated: Yes Orders Last 24hrs: Active Orders 24 hr Category Date Time Status Patient Status [ADT] Stat ADT 05/13/18 10:32 Active EKG Documentation Completion [RC] STAT Care 05/13/18 09:02 Active Oxygen Therapy [RC] PRN Care 05/13/18 10:42 Ordered Oxygen Therapy, ED [RC] ASDIRECTED Care 05/13/18 09:02 Active Pulse Oximetry [RC] ASDIRECTED Care 05/13/18 09:02 Active Up ad [place]y [RC] ASDIRECTED Care 05/13/18 10:42 Ordered VTE/DVT Education [RC] PER UNIT ROUTINE Care 05/13/18 10:42 Ordered Vital Signs [RC] Q4H Care 05/13/18 10:42 Ordered Regular Diet [DIET] Diet 05/13/18 Breakfast Ordered CBC WITH AUTO DIFF [HEME] AM Lab 05/14/18 05:11 Ordered COMPREHENSIVE METABOLIC PN,CMP [CHEM] AM Lab 05/14/18 05:11 Ordered CULTURE BLOOD [BC] Stat Lab 05/13/18 09:33 Received CULTURE BLOOD [BC] Stat Lab 05/13/18 10:27 Received CULTURE URINE [RM] Stat Lab 05/13/18 10:37 Ordered LACTIC ACID,WHOLE BLOOD [BG] Q6H Lab 05/13/18 15:00 Ordered LACTIC ACID,WHOLE BLOOD [BG] Q6H Lab 05/13/18 21:00 Ordered STREP SCRN A RAPID W CULT CONF [RM] Stat Lab 05/13/18 10:44 Ordered UA W/MICROSCOPIC [URIN] Stat Lab 05/13/18 10:10 Ordered Levofloxacin/Dextrose 5%-Water [Levaquin in D5W 750 MG/ Med 05/13/18 10:30 Active 150 ML] 750 mg Premix Bag 1 bag IV ONETIME Sodium Chloride 0.9% @ 150 MLS/HR (1,000ml) Med 05/13/18 10:45 Ordered Sodium Chloride 0.9% [Normal Saline] 1,000 ml IV ASDIRECTED Sodium Chloride 0.9% [Saline Flush] Med 05/13/18 09:03 Active 10 ml FLUSH ASDIRECTED PRN Sodium Chloride 0.9% [Saline Flush] Med 05/13/18 09:03 Active 2.5 ml FLUSH ASDIRECTED PRN Blood Culture x2 Reflex Set [OM.PC] Stat Oth 05/13/18 09:48 Ordered Saline Lock Insert [OM.PC] Stat Oth 05/13/18 09:02 Ordered Sequential Compression Device [OM.PC] Per Unit Routine Ot 05/13/18 10:42 Ordered Resuscitation Status Routine Resus Stat 05/13/18 10:42 Ordered Medication Orders Levofloxacin/Dextrose 750 mg/ (Premix) 150 mls @ 100 mls/hr IV ONETIME ONE Stop: 05/13/18 11:59 Last Admin: 05/13/18 10:40 Dose: 100 mls/hr Sodium Chloride (Normal Saline) 1,000 mls @ 150 mls/hr IV ASDIRECTED MISSY Sodium Chloride (Saline Flush) 10 ml FLUSH ASDIRECTED PRN PRN Reason: Keep Vein Open Sodium Chloride (Saline Flush) 2.5 ml FLUSH ASDIRECTED PRN PRN Reason: Keep Vein Open Assessment/Plan Comment:: 53 yo male presenting with fevers, no source found. Patient has received Levaquin in the ED. We will hydrate with IV fluids and monitor overnight.
[2018-05-13] MEDS: Sodium Chloride 0.9% 1,000 ML IV SCH ×2 (12:55→19:22)
[2018-05-13] MEDS: Acetaminophen 325 MG Tab PO PRN (22:35)
[2018-05-14] MEDS: Sodium Chloride 0.9% 1,000 ML IV SCH ×2 (02:21→17:44)
[2018-05-14] MEDS ORDERED: Sodium Chloride 0.9% 500 ML IV SCH (09:15)
--- NOTE | 2018-05-14 09:29 | CT ---
EXAM DATE: 05/13/18 PATIENT'S AGE: 53 Patient: [facility] Facility: [place], [place] Site . Site : 1965 Study: CT Abdomen/Pelvis [id number]/[id number] 11:12:22 PM Ordering Physician: Kristina Patel Final Report: INDICATION: abdomen pain, fever 104+ CT ABDOMEN AND PELVIS WITHOUT CONTRAST TECHNIQUE: Multidetector CT imaging was performed through the abdomen and pelvis without intravenous contrast administration. Coronal and sagittal reconstructions were generated. COMPARISON: None. FINDINGS: Lower chest: Minimal bibasilar lung atelectasis. Liver: Fatty infiltration of the liver. Scattered calcified granulomas. Gallbladder and bile ducts: No gallbladder wall thickening or calcified gallstones. No biliary dilation identified. Pancreas: Unremarkable. Spleen: Unremarkable aside from calcified granulomas. Adrenals: No nodules or masses. Kidneys, ureters, and urinary bladder: Congenitally low-lying left kidney. No urinary tract stones identified. No definite hydronephrosis. Nonspecific bilateral perinephric fat stranding, left slightly greater than right. Diffuse wall thickening of the urinary bladder, in part due to nondistention. Gastrointestinal tract: Normal caliber bowel without wall thickening. The appendix is normal. Vascular structures: Normal for age. Peritoneum: No free air, abscess, or significant free fluid. Lymph nodes: No pathologically enlarged nodes identified. Reproductive organs: Borderline prostatic enlargement. Bones: Spinal degenerative changes. IMPRESSION: 1. No definite acute abnormality identified. 2. Mild urinary bladder wall thickening, in part due to nondistension, and nonspecific bilateral perinephric fat stranding, left greater than right. Clinical correlation with urinalysis to exclude infection is recommended. 3. Nonacute additional findings as detailed above. MELANIE CORRALES MD [employer] Dictated by Alvaro Corrales MD @ 05/13/2018 11:32:48 PM Dictated by: Alvaro Corrales MD @ 05/13/2018 23:34:21 (Electronic Signature) Report Signed by Proxy. [facility]
[2018-05-14] MEDS: Levofloxacin/Dextrose 5%-Water 750 MG in Premix Bag 1 BAG IV SCH (09:59)
--- NOTE | 2018-05-14 11:54 | PCM.PN ---
- General Info Date of Service: 05/14/18 - Review of Systems Systems Review Comment:: feeling better, no fevers this morning - Patient Data Vitals - Most Recent: Last Vital Signs Temp 37.1 C 05/14/18 09:28 Pulse 78 05/14/18 08:00 Resp 16 05/14/18 08:00 BP 107/43 L 05/14/18 08:00 Pulse Ox 96 05/14/18 08:00 Weight - Most Recent: 135.171 kg I&O - Last 24 Hours: Intake & Output 05/13/18 05/14/18 05/14/18 22:59 06:59 14:59 Intake Total 1784 3811 Output Total 50 500 Balance 1734 3311 Lab Results Last 24 Hours: Laboratory Results - last 24 hr 05/13/18 05/13/18 05/14/18 Range/Units 14:56 21:07 07:18 WBC 14.60 H (4.0-11.0) K/uL RBC 3.72 L (4.50-5.90) M/uL Hgb 11.7 L (13.0-17.0) g/dL Hct 33.2 L (38.0-50.0) % MCV 89.2 (80.0-98.0) fL MCH 31.5 (27.0-32.0) pg MCHC 35.2 (31.0-37.0) g/dL RDW Std Deviation 44.3 (28.0-62.0) fl RDW Coeff of Dom 14 (11.0-15.0) % Plt Count 135 L (150-400) K/uL MPV 10.40 (7.40-12.00) fL Neut % (Auto) 90.2 H (48.0-80.0) % Lymph % (Auto) 5.8 L (16.0-40.0) % [place] % (Auto) 3.9 (0.0-15.0) % Eos % (Auto) 0.0 (0.0-7.0) % Baso % (Auto) 0.1 (0.0-1.5) % Neut # (Auto) 13.2 H (1.4-5.7) K/uL Lymph # (Auto) 0.9 (0.6-2.4) K/uL [place] # (Auto) 0.6 (0.0-0.8) K/uL Eos # (Auto) 0.0 (0.0-0.7) K/uL Baso # (Auto) 0.0 (0.0-0.1) K/uL Nucleated RBC % 0.0 /100WBC Nucleated RBCs # 0 K/uL Lactate 1.5 1.7 (0.20-2.00) mmol/L Sodium (136-148) mmol/L Potassium (3.5-5.1) mmol/L Chloride (98-107) mmol/L Carbon Dioxide (21.0-32.0) mmol/L BUN (7.0-18.0) mg/dL Creatinine (0.8-1.3) mg/dL Est Cr Clr Drug Dosing mL/min Estimated GFR (MDRD) ml/min Glucose (74-106) mg/dL Calcium (8.5-10.1) mg/dL Total Bilirubin (0.2-1.0) mg/dL AST (15-37) IU/L ALT (14-63) IU/L Alkaline Phosphatase (46-116) U/L Total Protein (6.4-8.2) g/dL Albumin (3.4-5.0) g/dL Globulin (2.0-3.5) g/dL Albumin/Globulin Ratio (1.3-2.8) 05/14/18 Range/Units 07:18 WBC (4.0-11.0) K/uL RBC (4.50-5.90) M/uL Hgb (13.0-17.0) g/dL Hct (38.0-50.0) % MCV (80.0-98.0) fL MCH (27.0-32.0) pg MCHC (31.0-37.0) g/dL RDW Std Deviation (28.0-62.0) fl RDW Coeff of Dom (11.0-15.0) % Plt Count (150-400) K/uL MPV (7.40-12.00) fL Neut % (Auto) (48.0-80.0) % Lymph % (Auto) (16.0-40.0) % [place] % (Auto) (0.0-15.0) % Eos % (Auto) (0.0-7.0) % Baso % (Auto) (0.0-1.5) % Neut # (Auto) (1.4-5.7) K/uL Lymph # (Auto) (0.6-2.4) K/uL [place] # (Auto) (0.0-0.8) K/uL Eos # (Auto) (0.0-0.7) K/uL Baso # (Auto) (0.0-0.1) K/uL Nucleated RBC % /100WBC Nucleated RBCs # K/uL Lactate (0.20-2.00) mmol/L Sodium 135 L (136-148) mmol/L Potassium 3.8 (3.5-5.1) mmol/L Chloride 104 (98-107) mmol/L Carbon Dioxide 23.0 (21.0-32.0) mmol/L BUN 18 (7.0-18.0) mg/dL Creatinine 1.4 H (0.8-1.3) mg/dL Est Cr Clr Drug Dosing 53.80 mL/min Estimated GFR (MDRD) 52.6 ml/min Glucose 113 H (74-106) mg/dL Calcium 8.0 L (8.5-10.1) mg/dL Total Bilirubin 0.6 (0.2-1.0) mg/dL AST 24 (15-37) IU/L ALT 28 (14-63) IU/L Alkaline Phosphatase 68 (46-116) U/L Total Protein 5.8 L (6.4-8.2) g/dL Albumin 3.0 L (3.4-5.0) g/dL Globulin 2.8 (2.0-3.5) g/dL Albumin/Globulin Ratio 1.1 L (1.3-2.8) Dale Results Last 24 Hours: Microbiology 05/13/18 10:27 Aerobic Blood Culture - Preliminary Blood - Venous - Lab Draw NO GROWTH AFTER 1 DAY Anaerobic Blood Culture - Preliminary NO GROWTH AFTER 1 DAY 05/13/18 09:33 Aerobic Blood Culture - Preliminary Blood - Venous NO GROWTH AFTER 1 DAY Anaerobic Blood Culture - Preliminary NO GROWTH AFTER 1 DAY 05/13/18 10:55 Group A Streptococcus Rapid Screen - Final Throat NEGATIVE STREP A SCREEN Med Orders - Current: Current Medications Acetaminophen (Tylenol) 650 mg PO Q4H PRN PRN Reason: Fever Last Admin: 05/13/18 22:35 Dose: 650 mg Sodium Chloride (Normal Saline) 1,000 mls @ 150 mls/hr IV ASDIRECTED MISSY Last Admin: 05/14/18 02:21 Dose: 150 mls/hr Levofloxacin/Dextrose 750 mg/ (Premix) 150 mls @ 100 mls/hr IV Q24H [facility] Last Admin: 05/14/18 09:59 Dose: 100 mls/hr Sodium Chloride (Normal Saline) 500 mls @ 999 mls/hr IV .BOLUS [facility] Last Admin: 05/14/18 09:26 Dose: 999 mls/hr Sodium Chloride (Saline Flush) 10 ml FLUSH ASDIRECTED PRN PRN Reason: Keep Vein Open Sodium Chloride (Saline Flush) 2.5 ml FLUSH ASDIRECTED PRN PRN Reason: Keep Vein Open Discontinued Medications Acetaminophen (Tylenol Extra Strength) 1,000 mg PO ONETIME ONE Stop: 05/13/18 10:32 Last Admin: 05/13/18 10:41 Dose: 1,000 mg Sodium Chloride (Normal Saline) 1,000 mls @ 999 mls/hr IV STAT ONE Stop: 05/13/18 10:03 Last Admin: 05/13/18 09:36 Dose: 999 mls/hr Levofloxacin/Dextrose 750 mg/ (Premix) 150 mls @ 100 mls/hr IV ONETIME ONE Stop: 05/13/18 11:59 Last Admin: 05/13/18 10:40 Dose: 100 mls/hr Ketorolac Tromethamine (Toradol) 30 mg IVPUSH ONETIME ONE Stop: 05/13/18 09:04 Last Admin: 05/13/18 09:36 Dose: 30 mg - Exam General: Alert, Oriented Neck: Supple Lungs: Clear to Auscultation, Normal Respiratory Effort Cardiovascular: Regular Rate, Regular Rhythm GI/Abdominal Exam: Soft, Non-Tender Extremities: Non-Tender, No Pedal Edema Skin: Warm, Dry, Intact Neurological: No New Focal Deficit - Problem List Review Problem List Initiated/Reviewed/Updated: Yes - My Orders Last 24 Hours: My Active Orders 05/13/18 10:42 Up ad Cony [RC] ASDIRECTED VTE/DVT Education [RC] PER UNIT ROUTINE Vital Signs [RC] Q4H Sequential Compression Device [OM.PC] Per Unit Routine Resuscitation Status Routine 05/13/18 10:45 Sodium Chloride 0.9% [Normal Saline] 1,000 ml IV ASDIRECTED 05/13/18 10:55 CULTURE STREP A CONFIRMATION [] Stat STREP SCRN A RAPID W CULT CONF [] Stat 05/13/18 22:29 Acetaminophen [Tylenol] 650 mg PO Q4H PRN 05/14/18 10:30 Levofloxacin/Dextrose 5%-Water [Levaquin in D5W 750 MG/150 ML] 750 mg Premix Bag 1 bag IV Q24H - Plan Plan:: 53 yo male presenting with fevers. CT abdomen/pelvis reported mild bladder wall enhancement and nonspecific perinephric stranding. We will continue levaquin and follow cultures.
[2018-05-14] MEDS: Ibuprofen 200 MG Tab PO PRN (22:25)
[2018-05-14] MEDS: ALPRAZolam 0.5 MG Tab PO PRN (22:25)
[2018-05-14] MEDS: Heparin Sodium 5,000 Units/ML Vial SUBCUT SCH (23:50)
[2018-05-14] MEDS: Vancomycin 1.5 GM in Sodium Chloride 0.9% 500 ML IV SCH (23:55)
[2018-05-15] MEDS: Sodium Chloride 0.9% 1,000 ML IV SCH ×2 (02:01→08:50)
[2018-05-15] MEDS: Heparin Sodium 5,000 Units/ML Vial SUBCUT SCH ×3 (06:52→21:50)
[2018-05-15] MEDS: Ibuprofen 200 MG Tab PO PRN (08:43)
[2018-05-15] MEDS: Levofloxacin/Dextrose 5%-Water 750 MG in Premix Bag 1 BAG IV SCH (10:39)
[2018-05-15 11:38] LABS: CHLORIDE,CL 109 mmol/L (98-107); SODIUM,NA 139 mmol/L (136-148)
--- NOTE | 2018-05-15 11:54 | PCM.PN ---
- General Info Date of Service: 05/15/18 - Review of Systems Systems Review Comment:: reprots pain and erythema of right leg - Patient Data Vitals - Most Recent: Last Vital Signs Temp 36.3 C 05/15/18 08:00 Pulse 72 05/15/18 08:00 Resp 16 05/15/18 08:00 BP 109/55 L 05/15/18 08:00 Pulse Ox 97 05/15/18 08:00 Weight - Most Recent: 135.171 kg I&O - Last 24 Hours: Intake & Output 05/14/18 05/15/18 05/15/18 22:59 06:59 14:59 Intake Total 3735 1200 Output Total 1800 1450 Balance 1935 -250 Lab Results Last 24 Hours: Laboratory Results - last 24 hr 05/15/18 05/15/18 Range/Units 11:12 11:12 WBC 7.83 (4.0-11.0) K/uL RBC 3.65 L (4.50-5.90) M/uL Hgb 11.4 L (13.0-17.0) g/dL Hct 33.1 L (38.0-50.0) % MCV 90.7 (80.0-98.0) fL MCH 31.2 (27.0-32.0) pg MCHC 34.4 (31.0-37.0) g/dL RDW Std Deviation 46.8 (28.0-62.0) fl RDW Coeff of Dom 14 (11.0-15.0) % Plt Count 122 L (150-400) K/uL MPV 10.40 (7.40-12.00) fL Neut % (Auto) 78.6 (48.0-80.0) % Lymph % (Auto) 15.1 L (16.0-40.0) % [place] % (Auto) 5.7 (0.0-15.0) % Eos % (Auto) 0.3 (0.0-7.0) % Baso % (Auto) 0.3 (0.0-1.5) % Neut # (Auto) 6.2 H (1.4-5.7) K/uL Lymph # (Auto) 1.2 (0.6-2.4) K/uL [place] # (Auto) 0.5 (0.0-0.8) K/uL Eos # (Auto) 0.0 (0.0-0.7) K/uL Baso # (Auto) 0.0 (0.0-0.1) K/uL Nucleated RBC % 0.0 /100WBC Nucleated RBCs # 0 K/uL Sodium 139 (136-148) mmol/L Potassium 4.1 (3.5-5.1) mmol/L Chloride 109 H (98-107) mmol/L Carbon Dioxide 27.1 (21.0-32.0) mmol/L BUN 11 (7.0-18.0) mg/dL Creatinine 1.1 (0.8-1.3) mg/dL Est Cr Clr Drug Dosing 68.47 mL/min Estimated GFR (MDRD) > 60.0 ml/min Glucose 127 H (74-106) mg/dL Calcium 8.5 (8.5-10.1) mg/dL [place] Results Last 24 Hours: Microbiology 05/13/18 10:27 Aerobic Blood Culture - Preliminary Blood - Venous - Lab Draw NO GROWTH AFTER 2 DAYS Anaerobic Blood Culture - Preliminary NO GROWTH AFTER 2 DAYS 05/13/18 09:33 Aerobic Blood Culture - Preliminary Blood - Venous NO GROWTH AFTER 2 DAYS Anaerobic Blood Culture - Preliminary NO GROWTH AFTER 2 DAYS 05/13/18 10:55 Quick Strep Confirmation Culture - Final Throat NO GROUP A STREP ISOLATED Group A Streptococcus Rapid Screen - Final NEGATIVE STREP A SCREEN 05/13/18 10:02 Urine Culture - Final Urine, Clean Catch MIXED OWEN <1000 CFU/ML Med Orders - Current: Current Medications Acetaminophen (Tylenol) 650 mg PO Q4H PRN PRN Reason: Fever Last Admin: 05/13/18 22:35 Dose: 650 mg Alprazolam (Xanax) 1 mg PO BID PRN PRN Reason: Anxiety Last Admin: 05/14/18 22:25 Dose: 1 mg Heparin Sodium (Porcine) (Heparin Sodium) 5,000 units SUBCUT Q8H [facility] Last Admin: 05/15/18 06:52 Dose: 5,000 units Levofloxacin/Dextrose 750 mg/ (Premix) 150 mls @ 100 mls/hr IV Q24H [facility] Last Admin: 05/15/18 10:39 Dose: 100 mls/hr Vancomycin HCl 1.5 gm/ Sodium (Chloride) 500 mls @ 333.333 mls/hr IV Q12H [facility] Last Admin: 05/14/18 23:55 Dose: 333.333 mls/hr Ibuprofen (Motrin) 200 mg PO Q6H PRN PRN Reason: Pain Last Admin: 05/15/18 08:43 Dose: 200 mg Sodium Chloride (Saline Flush) 10 ml FLUSH ASDIRECTED PRN PRN Reason: Keep Vein Open Sodium Chloride (Saline Flush) 2.5 ml FLUSH ASDIRECTED PRN PRN Reason: Keep Vein Open Vancomycin HCl (Pharmacy To Dose - Vancomycin) 1 dose .XX ASDIRECTED [facility] Discontinued Medications Acetaminophen (Tylenol Extra Strength) 1,000 mg PO ONETIME ONE Stop: 05/13/18 10:32 Last Admin: 05/13/18 10:41 Dose: 1,000 mg Sodium Chloride (Normal Saline) 1,000 mls @ 999 mls/hr IV STAT ONE Stop: 05/13/18 10:03 Last Admin: 05/13/18 09:36 Dose: 999 mls/hr Levofloxacin/Dextrose 750 mg/ (Premix) 150 mls @ 100 mls/hr IV ONETIME ONE Stop: 05/13/18 11:59 Last Admin: 05/13/18 10:40 Dose: 100 mls/hr Sodium Chloride (Normal Saline) 1,000 mls @ 150 mls/hr IV ASDIRECTED [facility] Last Admin: 05/15/18 08:50 Dose: 150 mls/hr Sodium Chloride (Normal Saline) 500 mls @ 999 mls/hr IV .BOLUS [facility] Last Admin: 05/14/18 09:26 Dose: 999 mls/hr Ketorolac Tromethamine (Toradol) 30 mg IVPUSH ONETIME ONE Stop: 05/13/18 09:04 Last Admin: 05/13/18 09:36 Dose: 30 mg - Exam General: Alert, Oriented HEENT: Mucous Membr. Moist/[place] Neck: Supple Lungs: Clear to Auscultation, Normal Respiratory Effort Cardiovascular: Regular Rate, Regular Rhythm GI/Abdominal Exam: Normal Bowel Sounds, Soft, Non-Tender Extremities: Other (5 byb 5 cm area of erythema of right lower leg) - Problem List Review Problem List Initiated/Reviewed/Updated: Yes - My Orders Last 24 Hours: My Active Orders 05/14/18 21:41 Ibuprofen [Motrin] 200 mg PO Q6H PRN 07/03/18 21:48 ALPRAZolam [Xanax] 1 mg PO BID PRN 05/14/18 22:45 Heparin Sodium 5,000 units SUBCUT Q8H Vancomycin Pharmacy to Dose [Pharmacy to Dose - Vancomycin] 1 dose .XX ASDIRECTED 05/14/18 23:00 Vancomycin 1.5 gm Sodium Chloride 0.9% [Normal Saline] 500 ml IV Q12H 05/15/18 11:02 Venous Doppler Lwr Ext Rt [US] Routine - Plan Plan:: 53 yo male presenting with fevers. CT abdomen/pelvis reported mild bladder wall enhancement and nonspecific perinephric stranding. Fevers have resolved but he has developed a rash on lower leg. We have added vancomycin for cellulitis and Doppler of lower leg is pending.
[2018-05-15] MEDS: Vancomycin 1.5 GM in Sodium Chloride 0.9% 500 ML IV SCH ×2 (13:14→22:23)
[2018-05-15] MEDS: Acetaminophen 325 MG Tab PO PRN (14:31)
[2018-05-15] MEDS: ALPRAZolam 0.5 MG Tab PO PRN (21:50)
[2018-05-16] MEDS: Heparin Sodium 5,000 Units/ML Vial SUBCUT SCH (05:45)
[2018-05-16 06:07] LABS: CHLORIDE,CL 108 mmol/L (98-107); SODIUM,NA 139 mmol/L (136-148)
[2018-05-16 08:17] VITALS: BP 92/43
--- NOTE | 2018-05-16 08:24 | PCM.DCSUM1 ---
Discharge Summary - Discharge Data Discharge Date: 05/16/18 Discharge Disposition: Home, Self-Care 01 Condition: Stable - Patient Summary/Data Hospital Course: 53 yo male who presented with fevers, chills and malaise. His laboratory values were significant for a creatinine of 1.4, and a white blood cell count of 14,600. He had a CT scan of his abdomen and pelvis reported mild bladder wall thickening, and nonspecific perinephric fat stranding. His UA was clear, blood cultures were no growth. Urine cultures grew out mix barber. He was started on Levaquin on admission for treatment of possible UTI. During his stay he developed a rash on his right lower leg. Dopplar of leg was negative for DVT. He was placed on vancomycin for cellulitis. His symptoms did improved and today his is being home on bactrim DS for five more days to have follow up with Dr. Cesar. - Patient Instructions Diet: Regular Diet as Tolerated - Discharge Plan Prescriptions/Med Rec: Sulfamethoxazole/Trimethoprim [Bactrim Ds Tablet] 1 each PO BID #10 tablet Home Medications: Home Meds ALPRAZolam [Alprazolam] 1 mg PO BID PRN 05/10/17 [History] Carvedilol 6.25 mg PO BID 05/10/17 [History] Furosemide [Lasix] 40 mg PO DAILY 05/10/17 [History] Lisinopril 5 mg PO QPM 05/10/17 [History] Rosuvastatin [Crestor] 40 mg PO DAILY 10/22/17 [History] Aspirin 975 tab PO DAILY 05/13/18 [History] Cyanocobalamin (Vitamin B12) [Vitamin B12] 1 tab PO DAILY 05/13/18 [History] Budesonide/Formoterol Fumarate [Symbicort 160-4.5 Mcg Inhaler] 2 puff INH BID [History] Sulfamethoxazole/Trimethoprim [Bactrim Ds Tablet] 1 each PO BID #10 tablet 05/16 [Rx] Forms: ED Department Discharge Referrals: PCP,None [Primary Care Provider] - - Patient Data Vitals - Most Recent: Last Vital Signs Temp 36.9 C 05/16/18 08:00 Pulse 76 05/16/18 08:00 Resp 18 05/16/18 08:00 BP 92/43 L 05/16/18 08:00 Pulse Ox 96 07/05/18 08:00 Weight - Most Recent: 135.171 kg I&O - Last 24 hours: Intake & Output 05/15/18 05/16/18 05/16/18 22:59 06:59 14:59 Intake Total 1100 1100 Output Total 900 1670 Balance 200 -570 Lab Results - Last 24 hrs: Laboratory Results - last 24 hr 05/15/18 05/15/18 05/16/18 Range/Units 11:12 11:12 05:30 WBC 7.83 6.91 (4.0-11.0) K/uL RBC 3.65 L 3.43 L (4.50-5.90) M/uL Hgb 11.4 L 10.5 L (13.0-17.0) g/dL Hct 33.1 L 30.8 L (38.0-50.0) % MCV 90.7 89.8 (80.0-98.0) fL MCH 31.2 30.6 (27.0-32.0) pg MCHC 34.4 34.1 (31.0-37.0) g/dL RDW Std Deviation 46.8 45.6 (28.0-62.0) fl RDW Coeff of Dom 14 14 (11.0-15.0) % Plt Count 122 L 118 L (150-400) K/uL MPV 10.40 10.30 (7.40-12.00) fL Neut % (Auto) 78.6 70.3 (48.0-80.0) % Lymph % (Auto) 15.1 L 19.2 (16.0-40.0) % [place] % (Auto) 5.7 9.8 (0.0-15.0) % Eos % (Auto) 0.3 0.6 (0.0-7.0) % Baso % (Auto) 0.3 0.1 (0.0-1.5) % Neut # (Auto) 6.2 H 4.9 (1.4-5.7) K/uL Lymph # (Auto) 1.2 1.3 (0.6-2.4) K/uL [place] # (Auto) 0.5 0.7 (0.0-0.8) K/uL Eos # (Auto) 0.0 0.0 (0.0-0.7) K/uL Baso # (Auto) 0.0 0.0 (0.0-0.1) K/uL Nucleated RBC % 0.0 0.0 /100WBC Nucleated RBCs # 0 0 K/uL Sodium 139 (136-148) mmol/L Potassium 4.1 (3.5-5.1) mmol/L Chloride 109 H (98-107) mmol/L Carbon Dioxide 27.1 (21.0-32.0) mmol/L BUN 11 (7.0-18.0) mg/dL Creatinine 1.1 (0.8-1.3) mg/dL Est Cr Clr Drug Dosing 68.47 mL/min Estimated GFR (MDRD) > 60.0 ml/min Glucose 127 H (74-106) mg/dL Calcium 8.5 (8.5-10.1) mg/dL 05/16/18 Range/Units 05:30 WBC (4.0-11.0) K/uL RBC (4.50-5.90) M/uL Hgb (13.0-17.0) g/dL Hct (38.0-50.0) % MCV (80.0-98.0) fL MCH (27.0-32.0) pg MCHC (31.0-37.0) g/dL RDW Std Deviation (28.0-62.0) fl RDW Coeff of Dom (11.0-15.0) % Plt Count (150-400) K/uL MPV (7.40-12.00) fL Neut % (Auto) (48.0-80.0) % Lymph % (Auto) (16.0-40.0) % [place] % (Auto) (0.0-15.0) % Eos % (Auto) (0.0-7.0) % Baso % (Auto) (0.0-1.5) % Neut # (Auto) (1.4-5.7) K/uL Lymph # (Auto) (0.6-2.4) K/uL [place] # (Auto) (0.0-0.8) K/uL Eos # (Auto) (0.0-0.7) K/uL Baso # (Auto) (0.0-0.1) K/uL Nucleated RBC % /100WBC Nucleated RBCs # K/uL Sodium 139 (136-148) mmol/L Potassium 3.8 (3.5-5.1) mmol/L Chloride 108 H (98-107) mmol/L Carbon Dioxide 27.2 (21.0-32.0) mmol/L BUN 9 (7.0-18.0) mg/dL Creatinine 1.0 (0.8-1.3) mg/dL Est Cr Clr Drug Dosing 75.32 mL/min Estimated GFR (MDRD) > 60.0 ml/min Glucose 117 H (74-106) mg/dL Calcium 8.4 L (8.5-10.1) mg/dL MAXX Results - Last 24 hrs: Microbiology 05/13/18 10:27 Aerobic Blood Culture - Preliminary Blood - Venous - Lab Draw NO GROWTH AFTER 2 DAYS Anaerobic Blood Culture - Preliminary NO GROWTH AFTER 2 DAYS 05/13/18 09:33 Aerobic Blood Culture - Preliminary Blood - Venous NO GROWTH AFTER 2 DAYS Anaerobic Blood Culture - Preliminary NO GROWTH AFTER 2 DAYS 05/13/18 10:55 Quick Strep Confirmation Culture - Final Throat NO GROUP A STREP ISOLATED Group A Streptococcus Rapid Screen - Final NEGATIVE STREP A SCREEN 05/13/18 10:02 Urine Culture - Final Urine, Clean Catch MIXED BARBER <1000 CFU/ML Med Orders - Current: Current Medications Acetaminophen (Tylenol) 650 mg PO Q4H PRN PRN Reason: Fever Last Admin: 05/15/18 14:31 Dose: 650 mg Alprazolam (Xanax) 1 mg PO BID PRN PRN Reason: Anxiety Last Admin: 05/15/18 21:50 Dose: 1 mg Heparin Sodium (Porcine) (Heparin Sodium) 5,000 units SUBCUT Q8H [facility] Last Admin: 05/16/18 05:45 Dose: 5,000 units Levofloxacin/Dextrose 750 mg/ (Premix) 150 mls @ 100 mls/hr IV Q24H [facility] Last Admin: 05/15/18 10:39 Dose: 100 mls/hr Vancomycin HCl 1.5 gm/ Sodium (Chloride) 500 mls @ 333.333 mls/hr IV Q12H [facility] Last Infusion: 05/16/18 00:00 Dose: Infused Ibuprofen (Motrin) 200 mg PO Q6H PRN PRN Reason: Pain Last Admin: 05/15/18 08:43 Dose: 200 mg Budesonide/Formoterol Fumarate [Symbicort 160-4.5 Mcg Inh 2 each INH BID [facility] Sodium Chloride (Saline Flush) 10 ml FLUSH ASDIRECTED PRN PRN Reason: Keep Vein Open Sodium Chloride (Saline Flush) 2.5 ml FLUSH ASDIRECTED PRN PRN Reason: Keep Vein Open Vancomycin HCl (Pharmacy To Dose - Vancomycin) 1 dose .XX ASDIRECTED [facility] Discontinued Medications Acetaminophen (Tylenol Extra Strength) 1,000 mg PO ONETIME ONE Stop: 05/13/18 10:32 Last Admin: 05/13/18 10:41 Dose: 1,000 mg Sodium Chloride (Normal Saline) 1,000 mls @ 999 mls/hr IV STAT ONE Stop: 05/13/18 10:03 Last Admin: 05/13/18 09:36 Dose: 999 mls/hr Levofloxacin/Dextrose 750 mg/ (Premix) 150 mls @ 100 mls/hr IV ONETIME ONE Stop: 05/13/18 11:59 Last Admin: 05/13/18 10:40 Dose: 100 mls/hr Sodium Chloride (Normal Saline) 1,000 mls @ 150 mls/hr IV ASDIRECTED [facility] Last Admin: 05/15/18 08:50 Dose: 150 mls/hr Sodium Chloride (Normal Saline) 500 mls @ 999 mls/hr IV .BOLUS [facility] Last Admin: 05/14/18 09:26 Dose: 999 mls/hr Ketorolac Tromethamine (Toradol) 30 mg IVPUSH ONETIME ONE Stop: 05/13/18 09:04 Last Admin: 05/13/18 09:36 Dose: 30 mg
[2018-05-16] MEDS: Ibuprofen 200 MG Tab PO PRN (08:57)
[2018-05-16] MEDS ORDERED: Budesonide/Formoterol Fumarate [Symbicort 160-4.5 Mcg Inh INH SCH (09:00)
--- NOTE | 2018-05-16 10:04 | US ---
EXAM DATE: 05/13/18 PATIENT'S AGE: 53 Patient: [facility] Facility: [place], [place] Site . Site : 1965 Study: US Extremity [id number]/4/2018 11:55:37 AM Ordering Physician: Kristina Patel Final Report: INDICATION: Right leg erythema TECHNIQUE: Ultrasound venous duplex lower right extremity. Compression venous exam was performed using black-scale, color Doppler, and spectral Doppler imaging. COMPARISON: No prior. FINDINGS: Sonographic imaging demonstrates the right common femoral, deep femoral, superficial femoral, popliteal, posterior tibial and greater saphenous veins to be fully compressible with normal color Doppler blood flow. IMPRESSION: No DVT within the right lower extremity. Dictated by Marcelo Damico MD @ May 15 2018 12:23PM (Electronic Signature) Report Signed by Proxy. [place]
[2018-05-16] MEDS: Levofloxacin/Dextrose 5%-Water 750 MG in Premix Bag 1 BAG IV SCH (10:54)
== END 2018-05-16 10:56 | disposition home or self-care (01) ==
LOC: MW.ED 08:33 → MW.MS 11:22
PROVIDERS: ADMIT Internal Medicine; ATTEND Internal Medicine
DX: R50.9 Fever, unspecified (principal); R53.81 Other malaise; Z79.82 Long term (current) use of aspirin; Z79.899 Other long term (current) drug therapy; Z88.0 Allergy status to penicillin; J44.9 Chronic obstructive pulmonary disease, unspecified; I10 Essential (primary) hypertension
CPT/HCPCS: 36415; 71046; 74176; 80048; 80053; 81001; 83605; 85025; 87040; 87081; 87086; 87880; 93005; 93971; 96361; 96365; 96375; 99285; A9270; J1644; J1885; J1956; J3370; J7040

== ENCOUNTER 2020-02-05 09:13 | Emergency (ER) | payer BC, OTHER ==
[2020-02-05] MEDS ORDERED: Ketorolac 30 MG/ML SDV IM ONE (09:59)
--- NOTE | 2020-02-05 10:38 | EDM.PDOC ---
ED [facility] GENERAL MEDICAL PROBLEM - General Chief Complaint: Lower Extremity Injury/Pain Stated Complaint: INJURED LEG Time Seen by Provider: 02/05/20 10:00 Source of Information: Reports: Patient History Limitations: Reports: No Limitations - History of Present Illness INITIAL COMMENTS - FREE TEXT/NARRATIVE: Patient 54-year-old male presenting with chief complaint of left lower extremity injury. Patient states he was at work when he had a large metal object fall on his left lower extremity. Patient states he was not entrapped in the metal bounced off and. Patient denies any other injury. Patient denies any loss of consciousness. Patient reports pain to the distal left lower leg without any numbness or tingling. Patient has no weakness. Patient was unable to bear weight at the scene. Pmhx: Stroke, hypertension Pshx: None Family Hx: noncontributory Smoking history? no Etoh use? none Drg use? none In addition to that documented in the HPI above, the additional ROS was obtained : Constitutional: Denies fevers or chills Eyes: Denies vision changes ENMT: Denies sore throat CV: Denies chest pain Resp: Denies SOB GI: Denies vomiting or diarrhea : Denies painful urination MSK: Per HPI Skin: Denies new rashes Neuro: Denies new numbness or tingling or weakness Endocrine: Denies unexpected weight loss Heme: Denies bleeding disorders I have reviewed the triage vital signs Const: Well nourished, well developed, appears stated age Eyes: PERRL, no conjunctival injection HENT: NCAT, Neck supple without meningismus CV: RRR, Warm, well-perfused extremities RESP: CTAB, Unlabored respiratory effort GI: soft, non-tender, non-distended, no masses MSK: Swelling to the distal left lower extremity. Patient's neurovascularly intact. No evidence of laceration. Small scant abrasion noted. Scant ecchymosis. Skin: Warm, dry. No rashes Neuro: Alert, sales support technician II-XII grossly intact. Sensation and motor function of extremities grossly intact. Psych: Appropriate mood and affect Assessment and plan: Patient is a 54-year-old male presenting with injury to the left lower leg. Patient has neurovascular intact. X-ray demonstrates fracture of the fibula as well as distal tibia which are only mildly displaced. Patient does not require reduction in the emergency department. Patient was placed in a posterior heel splint. Dr. Iyer was contacted and saw the patient in the emergency department as he will likely need surgery in the near future. However, prior to surgery he will need medical clearance from his primary physician given extensive past medical history and being on Eliquis. Patient's pain is under control. Patient does not demonstrate any evidence of compartment syndrome. left lower leg, above ankle Pain Score (Numeric/FACES): 8 - Related Data Allergies Allergy/AdvReac Type Severity Reaction Status Date / Time Penicillins Allergy Other Verified 02/05/20 09:47 Home Meds: Home Meds ALPRAZolam [Alprazolam] 1 mg PO BID PRN 05/10/17 [History] Furosemide [Lasix] 40 mg PO DAILY 05/10/17 [History] Lisinopril 5 mg PO QPM 05/10/17 [History] carvediloL [Carvedilol] 6.25 mg PO BID 05/10/17 [History] Rosuvastatin [Crestor] 40 mg PO DAILY 10/22/17 [History] Aspirin 1 - 2 tab PO DAILY 05/13/18 [History] Cyanocobalamin (Vitamin B12) [Vitamin B12] 1 tab PO DAILY 05/13/18 [History] Budesonide/Formoterol Fumarate [Symbicort 160-4.5 Mcg Inhaler] 2 puff INH BID PRN 05/15/18 [History] Apixaban [Eliquis] 02/05/20 [History] Past Medical History - Past Health History Medical/Surgical History: Denies Medical/Surgical History HEENT History: Reports: None Other HEENT History: tinnitis Cardiovascular History: Reports: Blood Clots/VTE/DVT, High Cholesterol, Hypertension Other Cardiovascular History: enlarge heart, DVT Respiratory History: Reports: COPD Gastrointestinal History: Denies: Cirrhosis Genitourinary History: Denies: Chronic Renal Insuffiency Musculoskeletal History: Reports: None Neurological History: Denies: Brain Injury, CVA, MS Other Neuro History: stroke in 2017 Psychiatric History: Reports: None Other Psychiatric History: occasional anxiety Endocrine/Metabolic History: Denies: Diabetes, Type II Hematologic History: Reports: None Immunologic History: Reports: None Oncologic (Cancer) History: Reports: None Dermatologic History: Reports: None - Infectious Disease History Infectious Disease History: Reports: Chicken Pox, Measles - Past Surgical History Head Surgeries/Procedures: Reports: None HEENT Surgical History: Reports: None Cardiovascular Surgical History: Reports: Carotid Endarterectomy Male Surgical History: Reports: None Musculoskeletal Surgical History: Reports: Other (See Below) Other Musculoskeletal Surgeries/Procedures:: right knee Social & Family History - Family History Family Medical History: Noncontributory - Tobacco Use Smoking Status *Q: Former Smoker Used Tobacco, but Quit: Yes Month/Year Tobacco Last Used: 2017 - Caffeine Use Caffeine Use: Reports: Coffee, Soda Caffeine Use Comment: 2 cups daily - Recreational Drug Use Recreational Drug Use: No Review of Systems - Review of Systems Review Of Systems: See Below ED EXAM, GENERAL - Physical Exam Exam: See Below Course - Vital Signs Last Recorded V/S: Last Vital Signs Temp 36.1 C 02/05/20 09:44 Pulse 55 L 02/05/20 09:44 Resp 18 02/05/20 09:44 BP 102/43 L 02/05/20 09:44 Pulse Ox 99 02/05/20 09:44 - Orders/Labs/Meds Meds: Medications Discontinued Medications Generic Name Dose Route Start Last Admin Trade Name Dieterq PRN Reason Stop Dose Admin Ketorolac Tromethamine 30 mg 02/05/20 09:59 02/05/20 10:45 Toradol IM 02/05/20 10:00 30 mg ONETIME ONE Administration Departure - Departure Time of Disposition: 12:05 Disposition: Home, Self-Care 01 Clinical Impression: Fracture of fibula, Closed fracture of ankle - Discharge Information Instructions: Ankle Fracture, [id number] Referrals: PCP,None [Primary Care Provider] - Forms: ED Department Discharge Additional Instructions: The following information is given to patients seen in the emergency department who are being discharged to home. This information is to outline your options for follow-up care. We provide all patients seen in our emergency department with a follow-up referral. The need for follow-up, as well as the timing and circumstances, are variable depending upon the specifics of your emergency department visit. If you don't have a primary care physician on staff, we will provide you with a referral. We always advise you to contact your personal physician following an emergency department visit to inform them of the circumstance of the visit and for follow-up with them and/or the need for any referrals to a consulting specialist. The emergency department will also refer you to a specialist when appropriate. This referral assures that you have the opportunity for follow-up care with a specialist. All of these measure are taken in an effort to provide you with optimal care, which includes your follow-up. Under all circumstances we always encourage you to contact your private physician who remains a resource for coordinating your care. When calling for follow-up care, please make the office aware that this follow-up is from your recent emergency room visit. If for any reason you are refused follow-up, please contact the [facility] Emergency Department at and asked to speak to the emergency department charge nurse. Sepsis Event Note - Evaluation Sepsis Screening Result: No Definite Risk - Focused Exam Vital Signs: Vital Signs Temp Pulse Resp BP Pulse Ox 02/05/20 09:44 36.1 C 55 L 18 102/43 L 99 Date Exam was Performed: 02/05/20 Time Exam was Performed: 12:04
--- NOTE | 2020-02-05 10:43 | CR ---
Left tibia and fibula: 2 views of the left tibia and fibula were obtained. Soft tissue calcifications are seen anteriorly within the lopes believed to be dystrophic. Several surgical clips are seen within the soft tissues. Fracture is noted within the distal one third diaphysis of the fibula. Mild displacement and slight comminution is noted. Slightly displaced medial malleolar fracture is also noted. No additional abnormality is seen. Impression: 1. Slightly displaced and comminuted distal fibular shaft fracture. 2. Mildly displaced medial malleolar fracture. 3. Other findings as noted above which are felt to be incidental. Diagnostic code #3 Study was dictated in MDT
--- NOTE | 2020-02-05 10:43 | CR ---
Left foot: 2 views of the left foot were obtained. Comparison: No prior foot exam. Medial malleolar and distal fibular shaft fracture is seen. Joint spaces within the foot are maintained. Os navicularis is noted. No acute fracture is seen within the foot. No dislocation is noted. Impression: 1. Fractures within the medial malleolus and distal fibular shaft. 2. Nothing acute is seen within the left foot. Diagnostic code #3 Study was dictated in MDT
[2020-02-05 13:49] VITALS: BP 125/35; PULSE 54
== END 2020-02-05 13:11 | disposition home or self-care (01) ==
LOC: MW.ED 09:13
DX: S82.832A Other fracture of upper and lower end of left fibula, initial encounter for closed fracture (principal); I10 Essential (primary) hypertension; E11.9 Type 2 diabetes mellitus without complications; Z79.899 Other long term (current) drug therapy; Z88.0 Allergy status to penicillin; Z87.891 Personal history of nicotine dependence; X58.XXXA Exposure to other specified factors, initial encounter; Y99.0 Civilian activity done for income or pay
CPT/HCPCS: 29505; 73590; 73620; 96372; 99283; J1885

== ENCOUNTER 2020-02-11 07:28 | Day surgery (SDC) | payer OTHER, BC ==
[~2020-02-11 07:28] MED LIST: Lactated Ringers 1,000 ML IV SCH
[2020-02-11] MEDS ORDERED: Bupivacaine 0.5%/EPINEPHrine 1:200,000 10 ML SDV ONE (07:53)
[2020-02-11] MEDS ORDERED: Ropivacaine 0.5% 5 MG/ML 30 ML SDV ONE (07:53)
[2020-02-11] MEDS ORDERED: fentaNYL 100 MCG/2 ML SDV ONE (07:55)
[2020-02-11] MEDS ORDERED: Lidocaine 2% 5 ML SDV ONE ×2 (07:55→08:26)
[2020-02-11] MEDS ORDERED: ceFAZolin 2 GM in Premix Bag 1 BAG IV SCH (08:00)
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
--- NOTE | 2020-02-11 09:13 | PCM.PRNOTE ---
- Free Text/Narrative Note: Discussed Saphenous nerve block along with Popiteal nerve block with pt. Pt verbalized understanding and wants to proceed with procedure. Time out performed. Pt prepped and draped. Fentanyl 100 mcg given. Ultrasound probe draped. Saphenous nerve block performed with ultrasound guidance. Bupivicaine 0.5 % with epi 20 ml injected with Lidocaine 2% 5 ml of Lidocaine. Pt denied any parasthesia negative hem every 5 ml. No signs of toxicity noted. Popiteal nerve block performed prepped and ultrasound probe draped. Time out performed. to Left leg. Ultrasound guided popiteal block performed. Ropivicaine 0.5 % 20 ml with Lidocaine 2% 5 ml injected. Aspiration every 5 ml. Negative Hem , Neg Parasthesia. No signs and symptoms of toxicity noted. Pt tolerated well.
[2020-02-11] MEDS ORDERED: Propofol 200 MG/20 ML SDV ONE ×3 (09:16→11:15)
[2020-02-11] MEDS ORDERED: Midazolam 1 MG/ML 2 ML SDV ONE (09:17)
[2020-02-11] MEDS ORDERED: ceFAZolin/Dextrose,Iso-Osmotic 2 GM/50 ML Duplex Bag IV ONE (10:22)
--- NOTE | 2020-02-11 11:52 | PCM.OPNOTE ---
- General Post-Op/Procedure Note Date of Surgery/Procedure: 02/11/20 Operative Procedure(s): orif left bimalleolar fracture Pre Op Diagnosis: left bimall fracture Post-Op Diagnosis: Same Anesthesia Technique: Moderate Sedation, Regional Block Primary Surgeon: Awais Iyer Catering Service Manager: Savannah Avila EBL in mLs: 50 Complications: None Condition: Good
--- NOTE | 2020-02-11 13:15 | PCM.POSTAN ---
POST ANESTHESIA ASSESSMENT - MENTAL STATUS Mental Status: Alert, Oriented - VITAL SIGNS Vital Signs: Last Vital Signs Temp 36.9 C 02/11/20 12:03 Pulse 58 L 02/11/20 12:31 Resp 14 02/11/20 12:31 BP 99/55 L 02/11/20 12:31 Pulse Ox 96 02/11/20 12:31 - RESPIRATORY Respiratory Status: Respiratory Rate WNL, Airway Patent, O2 Saturation Stable - CARDIOVASCULAR CV Status: Pulse Rate WNL, Blood Pressure Stable - GASTROINTESTINAL GI Status: No Symptoms - PAIN Pain Score: 1 - POST OP HYDRATION Hydration Status: Adequate & Stable - OBSERVATIONS Free Text/Narrative:: No anesthesia problems
--- NOTE | 2020-02-11 13:15 | PCM48HPAN ---
Post Anesthesia Note - EVALUATION WITHIN 48HRS OF ANESTHETIC Vital Signs in Normal Range: Yes Patient Participated in Evaluation: Yes Respiratory Function Stable: Yes Airway Patent: Yes Cardiovascular Function Stable: Yes Hydration Status Stable: Yes Pain Control Satisfactory: Yes Nausea and Vomiting Control Satisfactory: Yes Mental Status Recovered: Yes Vital Signs: Last Vital Signs Temp 36.9 C 02/11/20 12:03 Pulse 58 L 02/11/20 12:31 Resp 14 02/11/20 12:31 BP 99/55 L 02/11/20 12:31 Pulse Ox 96 02/11/20 12:31 - COMMENTS/OBSERVATIONS Free Text/Narrative:: No anesthesia problems
[2020-02-11 13:29] VITALS: BP 117/68; PULSE 63
--- NOTE | 2020-02-11 15:32 | CR ---
Left ankle: 6 fluoroscopic spot views were obtained of the left ankle. Study obtained with C-arm device. Comparison: Previous left tibia and fibula study of 02/05/20. Study shows placement of plate and screws across previous distal fibular shaft fracture. 2 cannulated screws affix previous medial malleolar fracture. Alignment of the fractures appears near anatomic. Ankle mortise is symmetric. Fluoroscopy time given as 21.8 seconds. Impression: 1. Procedural study as described above. Diagnostic code #2 Study was dictated in MDT
--- NOTE | 2020-02-26 14:44 | OR ---
SURGEON: Awais Iyer DATE OF PROCEDURE: 02/11/2020 PREOPERATIVE DIAGNOSIS: Left bimalleolar fracture, closed. POSTOPERATIVE DIAGNOSIS: Left bimalleolar fracture, closed. PROCEDURE: Open reduction and internal fixation, left bimalleolar fracture. PRIMARY SURGEON: Awais Iyer DO ANNEALING FURNACE TENDER: LUANA Hebret Nurse practitioner, LUANA Hebert, played an essential role in assisting in this case, helping to position the patient, retract structures as needed, as well as suturing and cutting sutures as indicated. Her presence improved patient's safety and decreased operative time. ANESTHESIA: Moderate sedation with a regional block. FLUID: Lactated Ringer's solution. ESTIMATED BLOOD LOSS: 50 mL. COMPLICATION: None. SPECIMEN: None. DISCHARGE DISPOSITION: Stable to PACU. HISTORY AND INDICATIONS FOR THE PROCEDURE: The patient was seen preoperatively in the clinic. He had suffered a fall and was seen in the emergency department for the above-mentioned fracture, which was confirmed on radiographic images. Risks and goals of the procedure were explained to the patient. Informed consent was obtained. DETAILS OF PROCEDURE: The patient was seen preoperatively by myself and the Anesthesia staff in the preoperative holding area, where the operative site was marked. He was brought to the operative suite by Anesthesia staff, where a regional block and moderate sedation were administered. All extremities were found to be well padded. A well-padded tourniquet was placed on the left thigh. The left lower extremity was then prepped and draped in a sterile manner. Time-out was called identifying the correct patient, the correct procedure, the correct site, and that antibiotics had been begun within the appropriate period of time. Left lower extremity was then exsanguinated and tourniquet was raised to 250 mmHg and taken down during closure. Lateral incision was then made from the tip of the lateral malleolus proximally about 10 cm. The fracture was identified. I then removed soft tissue around the fracture site and irrigated to remove any blood clot. I then aligned the fracture and then placed a distal fibular anatomic locking plate. I applied my 2 proximal screws first and then 2 distal screws and then confirmed good alignment on fluoroscopy and then placed the remainder of my screws. I then took images to confirm good placement. I then focused on the medial malleolus. Fortunately, this had reduced quite nicely after reduction of the lateral malleolus. I was able to make a stab incision distally. Then, 3 percutaneous wires and 4.0 cannulated screws, placed 2 cannulated screws, which were 55 mm each through the medial malleolus into the distal tibia. After confirming good placement, we took our final films. We then copiously irrigated with saline. Then, my resident programs assistant closed the medial malleolar incision with 2 saray and then closed the lateral incision with subcu Stratafix followed by skin saray. All incisions were covered by Betadine-soaked Adaptic sponges and an JAREK wrap. The patient was then placed into a boot and taken to the PACU in stable condition. [id number] / MODL /[id number]
== END 2020-02-11 13:45 | disposition home or self-care (01) ==
LOC: MW.SDS 07:28
PROVIDERS: ATTEND Orthopaedic Surgery
DX: S82.842A Displaced bimalleolar fracture of left lower leg, initial encounter for closed fracture (principal); I10 Essential (primary) hypertension; E66.01 Morbid (severe) obesity due to excess calories; J44.9 Chronic obstructive pulmonary disease, unspecified; G47.33 Obstructive sleep apnea (adult) (pediatric); Z79.899 Other long term (current) drug therapy; Z87.891 Personal history of nicotine dependence; Z68.42 Body mass index [BMI] 45.0-49.9, adult; W19.XXXA Unspecified fall, initial encounter
CPT/HCPCS: 27814; 76000; C1713; C1769; J0690; J2001; J2250; J2704; J2795; J3010; J3490; J7120; 01480

== ENCOUNTER 2020-03-22 14:42 | Emergency (ER) | payer OTHER, BC ==
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
[2020-03-22 15:38] LABS: CARBON DIOXIDE,CO2 29.9 mmol/L (21.0-32.0); POTASSIUM,K 4.7 mmol/L (3.5-5.1)
--- NOTE | 2020-03-22 15:57 | CR ---
Left ankle: 3 views left ankle were obtained. Comparison: Prior left ankle study of 02/26/20. Stable fractures are noted. Orthopedic hardware remains in place. Skin saray have been removed. Soft tissue surgical clips are seen within the medial distal lower extremity. Soft tissue calcifications are seen within the lopes. No additional abnormality is seen. No erosions are seen. Impression: 1. Stable fractures. 2. Skin saray have been removed from prior exam. 3. Other findings believed to be incidental. 4. No definite erosive change is appreciated to indicate osteomyelitis. Diagnostic code #2 This report was dictated in MDT
[2020-03-22 16:13] VITALS: BP 120/62; PULSE 65
== END 2020-03-22 16:13 | disposition home or self-care (01) ==
LOC: MW.ED 14:42
DX: T81.49XA Infection following a procedure, other surgical site, initial encounter (principal); E78.00 Pure hypercholesterolemia, unspecified; I10 Essential (primary) hypertension; F41.9 Anxiety disorder, unspecified; Z79.899 Other long term (current) drug therapy; Z79.01 Long term (current) use of anticoagulants; Z86.718 Personal history of other venous thrombosis and embolism; Z86.73 Personal history of transient ischemic attack (TIA), and cerebral infarction without residual deficits
CPT/HCPCS: 36415; 73610-26-LT; 73610-LT; 80053; 85025; 87070; 87077; 87186; 99283

== ENCOUNTER 2020-05-12 09:08 | Day surgery (SDC) | payer OTHER ==
[~2020-05-12 09:08] MED LIST changes: +Clindamycin Phosphate in D5W 900 MG in Premix Bag 1 BAG IV SCH
[2020-05-12] MEDS ORDERED: fentaNYL 100 MCG/2 ML SDV ONE ×2 (10:07→10:09)
[2020-05-12] MEDS ORDERED: Midazolam 1 MG/ML 2 ML SDV ONE ×2 (10:07→11:50)
[2020-05-12] MEDS ORDERED: Propofol 200 MG/20 ML SDV ONE (10:07)
[2020-05-12] MEDS ORDERED: Dexamethasone 4 MG/ML 5 ML MDV ONE (10:10)
[2020-05-12] MEDS ORDERED: Ondansetron 4 MG/2 ML SDV ONE (10:10)
[2020-05-12] MEDS ORDERED: Bupivacaine 0.25% 10 ML SDV ONE ×2 (10:16→12:54)
[2020-05-12] MEDS ORDERED: Sodium Chloride 0.9% 20 ML ONE (10:17)
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
--- NOTE | 2020-05-12 11:25 | PCM.SN.2 ---
- Free Text/Narrative Note: Patient assessed by MDA prior to block. Consent obtained. Monitors and oxygen applied. Time out done. Sterile prep and drape. Chloraprep. Sterile gloves and hat/mask by CARD BOXER and SRNA. Pre block VS - 100%, HR 60, BP 111/41. Skin anesthetized with 1% lidocaine. 20g 4" stimulating needle used under US visualization. Negative aspiration. 20 ml of 0.25% bupivacaine with 4mg Decadron infiltrated with US visualization. Post block VS - 100%, HR 62, BP 110/41. Care to preop RN.
[2020-05-12] MEDS ORDERED: fentaNYL 250 MCG/5 ML SDV ONE (11:50)
[2020-05-12] MEDS ORDERED: ePHEDrine 50 MG/ML SDV ONE (12:03)
[2020-05-12] MEDS ORDERED: fentaNYL 100 MCG/2 ML SDV IVPUSH PRN (12:04)
--- NOTE | 2020-05-12 13:32 | PCM.OPNOTE ---
- General Post-Op/Procedure Note Date of Surgery/Procedure: 05/12/20 Operative Procedure(s): Removal of deep implants from left distal fibula (plate and screws) Findings: Left bimalleolar ankle fracture with superficial wound dehiscence and exposed hardware over the distal fibula Pre Op Diagnosis: Left bimalleolar ankle fracture with superficial wound dehiscence and exposed hardware over the distal fibula Post-Op Diagnosis: Left bimalleolar ankle fracture with superficial wound dehiscence and exposed hardware over the distal fibula Anesthesia Technique: General LMA Primary Surgeon: Farshad Ocampo Sales Manager [place]: Savannah Avila Reason Sales Manager [place] Was Necessary: Retraction Pathology: Cultures to pathology for aerobic, anaerobic, and Gram stain EBL in mLs: 25 Complications: None Free Text/Narrative:: To review the procedure, risks and benefits, the patient consented to proceed with the above procedure. Patient was taken to the operating room. After adequate general anesthesia he remained in the supine position. Tourniquet was placed from the left proximal thigh. Left lower extremity is prepped and draped in usual sterile manner. The leg elevated the tourniquet inflated. The previous incision was opened with a scalpel. There was a 2 cm x 1.5 cm opening over the distal fibula and plate that was debrided sharply with the scalpel. Subcutaneous tissue were further incised with a deep knife. Tissues were then spread to protect nerves. The plate was exposed and 11 screws were removed. Biofilm over the plate was swabbed as a specimen for cultures. Plate was removed. The bony surface was debrided with the periosteal elevator down to bone removing any biofilm. The fracture appeared to be grossly healed and stable. Wound was irrigated. The skin was closed with interrupted full-thickness retention sutures using #2 nylon. A sterile dressing was applied and patient was accompanied to the recovery room in stable condition. Pain management: Kim 1 tablet every 6 hours as needed for 3 days and Tylenol 325 mg every 4-6 hours should not exceed 3 g daily with the Kim. Antibiotics: Bactrim DS 1 tablet twice a day 2 weeks Venous thromboembolism prophylaxis: Patient will resume chronic anticoagulation in 48 hours. Restrictions: Patient is weightbearing as tolerated on his left lower extremity and should use the fracture boot for support.
[2020-05-12] MEDS ORDERED: Acetaminophen 1,000 MG in Premix Bag 1 BAG IV ONE (13:40)
[2020-05-12 17:18] VITALS: BP 106/59; PULSE 72
--- NOTE | 2020-05-12 18:29 | PCM48HPAN ---
Post Anesthesia Note - EVALUATION WITHIN 48HRS OF ANESTHETIC Vital Signs in Normal Range: Yes Patient Participated in Evaluation: Yes Respiratory Function Stable: Yes Airway Patent: Yes Cardiovascular Function Stable: Yes Hydration Status Stable: Yes Pain Control Satisfactory: Yes Nausea and Vomiting Control Satisfactory: Yes Mental Status Recovered: Yes Vital Signs: Last Vital Signs Temp 96.6 F L 05/12/20 14:20 Pulse 72 05/12/20 16:30 Resp 16 05/12/20 16:30 BP 106/59 L 05/12/20 16:30 Pulse Ox 98 05/12/20 16:30
--- NOTE | 2020-05-13 14:38 | CR ---
Left ankle: 4 fluoroscopic spot views left ankle were obtained. Comparison: Prior left ankle study of 05/11/20. Plate and screws have been removed previously seen within the distal fibula. Mild deformity is seen within the distal fibular shaft compatible with previous fracture. 2 cannulated screws remain within the medial malleolus. Impression: 1. Procedural study as noted above. Diagnostic code #2 This report was dictated in MDT
== END 2020-05-12 17:00 | disposition home or self-care (01) ==
LOC: MW.SDS 09:08
PROVIDERS: ATTEND Orthopaedic Surgery
DX: T81.33XA Disruption of traumatic injury wound repair, initial encounter (principal); S82.832D Other fracture of upper and lower end of left fibula, subsequent encounter for closed fracture with routine healing; F41.9 Anxiety disorder, unspecified; J44.9 Chronic obstructive pulmonary disease, unspecified; I10 Essential (primary) hypertension; E78.00 Pure hypercholesterolemia, unspecified; E66.01 Morbid (severe) obesity due to excess calories; Z68.42 Body mass index [BMI] 45.0-49.9, adult; G47.30 Sleep apnea, unspecified; X58.XXXD Exposure to other specified factors, subsequent encounter
CPT/HCPCS: 20680; 76000; 87070; 87075; 87077; 87186; 87205; J0131; J1100; J2250; J2405; J2704; J3010; J3490; J7120

== ENCOUNTER 2021-08-11 15:09 | Emergency (ER) | payer BC, OTHER ==
[2021-08-11] MEDS ORDERED: Sodium Chloride 0.9% 2.5 ML Syringe FLUSH PRN (15:21)
[2021-08-11] MEDS ORDERED: Sodium Chloride 0.9% 10 ML SDV IV PRN (15:21)
[2021-08-11] MEDS ORDERED: Sodium Chloride 0.9% 10 ML Syringe FLUSH PRN (15:21)
[2021-08-11] MEDS ORDERED: Calcium Gluconate 10% 1 GM/10 ML SDV IVPUSH ONE (15:25)
--- NOTE | 2021-08-11 15:38 | PCM.EKG ---
#1 Interpretation EKG Date: 08/11/21 Time: 15:09 Rhythm: NSR Rate (Beats/Min): 53 [place]: LAD-Left [place] Deviation P-Wave: Present QRS: Normal ST-T: Normal QT: Normal ND/PQ Interval: 403 Comparison: No Change (05/13/18) EKG Interpretation Comments: Sinus Rhythm with Type I AV block
[2021-08-11] MEDS ORDERED: Aspirin 81 MG Tab.Chew PO ONE (15:49)
[2021-08-11 15:56] LABS: BLOOD UREA NITROGEN,BUN 20 mg/dL (7.0-18.0); CARBON DIOXIDE,CO2 28.6 mmol/L (21.0-32.0); CHLORIDE,CL 101 mmol/L (98-107); GLUCOSE RANDOM 100 mg/dL (74-106); POTASSIUM,K 4.1 mmol/L (3.5-5.1); SODIUM,NA 137 mmol/L (136-148)
--- NOTE | 2021-08-11 16:10 | CR ---
INDICATION: Chest pain. TECHNIQUE: Chest 2 views. COMPARISON: Chest radiograph 02/09/2020. FINDINGS: Defibrillator pad over the right chest. Azygos fissure again noted. Stable small calcified granuloma right upper lung. Mild left basilar atelectasis. No focal consolidation. No pleural effusion or pneumothorax. Normal heart size and pulmonary vascularity. The bones are unremarkable. IMPRESSION: No acute cardiopulmonary findings. Mild left basilar atelectasis. Dictated by Peyton Zimmerman MD @ 08/11/2021 4:09:21 PM (Electronically Signed)
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
[2021-08-11 19:57] VITALS: BP 102/58; PULSE 67
== END 2021-08-11 19:56 | disposition home or self-care (01) ==
LOC: MW.ED 15:09
DX: R07.9 Chest pain, unspecified (principal); I10 Essential (primary) hypertension; E78.00 Pure hypercholesterolemia, unspecified; J44.9 Chronic obstructive pulmonary disease, unspecified; E66.9 Obesity, unspecified; Z68.42 Body mass index [BMI] 45.0-49.9, adult; Z79.01 Long term (current) use of anticoagulants; Z88.0 Allergy status to penicillin; Z79.899 Other long term (current) drug therapy; Z20.822 Contact with and (suspected) exposure to COVID-19
CPT/HCPCS: 36415; 71046; 80048; 83735; 83880; 84484; 85025; 85610; 87635; 93005; 96374; 99285; A9270; J0610; 99284; U0002

== ENCOUNTER 2022-05-05 11:09 | Emergency (ER) | payer BC ==
[2022-05-05 11:54] LABS: POTASSIUM,K 4.3 mmol/L (3.5-5.1)
[2022-05-05 11:58] LABS: CORONAVIRUS COVID-19 NAA NEGATIVE (NEGATIVE); INFLUENZA A NAA NEGATIVE (NEGATIVE); INFLUENZA B NAA NEGATIVE (NEGATIVE)
[2022-05-05] MEDS ORDERED: Lactated Ringers 1,000 ML IV STA (12:45)
[2022-05-05 14:49] VITALS: BP 121/65; PULSE 51
== END 2022-05-05 14:49 | disposition home or self-care (01) ==
LOC: MW.ED 11:09
DX: E86.0 Dehydration (principal); R55 Syncope and collapse; R00.1 Bradycardia, unspecified; I10 Essential (primary) hypertension; E78.00 Pure hypercholesterolemia, unspecified; E66.9 Obesity, unspecified; Z68.42 Body mass index [BMI] 45.0-49.9, adult; Z20.822 Contact with and (suspected) exposure to COVID-19; Z88.0 Allergy status to penicillin
CPT/HCPCS: 0240U; 36415; 71045; 80053; 84443; 84484; 85025; 85610; 93005; 96360; 99285; J7120; 93010; 99283

== ENCOUNTER 2024-09-22 07:03 | Day surgery (SDC) | payer BC ==
[2024-09-22] MEDS: Lactated Ringers 1,000 ML IV SCH (07:45)
[2024-09-22] MEDS ORDERED: Ketamine 500 mg/10 ML MDV ONE (08:34)
[2024-09-22] MEDS ORDERED: propofoL 500 MG/50 ML 50 ML ONE (08:42)
[2024-09-22] MEDS ORDERED: Glycopyrrolate 0.2 MG/ML SDV ONE (08:42)
[2024-09-22] MEDS ORDERED: Lactated Ringers 1,000 ML IV SCH (09:00)
[2024-09-22 10:13] VITALS: BP 91/56; PULSE 76
== END 2024-09-22 09:45 | disposition home or self-care (01) ==
LOC: MW.SDS 07:03
PROVIDERS: ATTEND Surgery
DX: K31.A0 Gastric intestinal metaplasia, unspecified (principal); J44.9 Chronic obstructive pulmonary disease, unspecified; I10 Essential (primary) hypertension; E78.00 Pure hypercholesterolemia, unspecified; G47.33 Obstructive sleep apnea (adult) (pediatric); Z87.891 Personal history of nicotine dependence; Z79.82 Long term (current) use of aspirin; Z79.899 Other long term (current) drug therapy
CPT/HCPCS: 43239; J1596; J2704; J3490; J7120; 00731